=== PATIENT | female | born 1960 | race Caucasian/White ===

== ENCOUNTER 2022-03-27 21:27 | Emergency (ER) | payer OTHER ==
[2022-03-27 22:30] VITALS: BP 144/83; PULSE 72; RESP 18; TEMP 97.6
--- NOTE | 2022-03-27 22:52 | XR ---
EXAMINATION TYPE: XR wrist complete LT DATE OF EXAM: 03/27/2022 COMPARISON: NONE HISTORY: Fall. Pain. TECHNIQUE: 4 views FINDINGS: I see no fracture nor dislocation. Carpal bones are intact. Joint spaces are fairly normal. IMPRESSION: Negative left wrist exam.
--- NOTE | 2022-03-28 00:25 | ED ---
Trauma HPI - General Chief Complaint: Extremity Injury, Upper Stated Complaint: Fall/L Wrist pain/Hit head Time Seen by Provider: 03/27/22 23:56 Source: patient, RN notes reviewed Mode of arrival: ambulatory Limitations: no limitations - History of Present Illness Initial Comments: States she tripped forward over uneven ground and reach her left hand out to stop herself. Patient fell on outstretched hand. Complaining of pain to the dorsum left wrist. Patient states she did bump her head very minimally. However no loss of consciousness, has no neurologic symptoms. Complaining of sharp pain to the left wrist which is exacerbated by movement. No paresthesias no other injuries. No headache, no fever or chills, no changes in vision or hearing, no sore throat or difficulty with speech, no neck pain, no chest pain or shortness of breath, no abdominal pain, no nausea or vomiting, no changes in urination or bowel movements, no numbness or tingling, no skin rashes or lesions. - Related Data Allergies Allergy/AdvReac Type Severity Reaction Status Date / Time No Known Allergies Allergy Verified 03/27/22 22:30 Review of Systems ROS Statement: Those systems with pertinent positive or pertinent negative responses have been documented in the HPI. ROS Other: All systems not noted in ROS Statement are negative. Past Medical History Past Medical History: No Reported History History of Any Multi-Drug Resistant Organisms: None Reported Past Surgical History: Section Past Psychological History: No Psychological Hx Reported Smoking Status: Current every day smoker Past Alcohol Use History: None Reported Past Drug Use History: None Reported General Exam Limitations: no limitations General appearance: alert, in no apparent distress Head exam: Present: atraumatic, normocephalic, normal inspection Eye exam: Present: normal appearance, PERRL, EOMI. Absent: scleral icterus, con junctival injection, periorbital swelling ENT exam: Present: normal exam, mucous membranes moist Neck exam: Present: normal inspection. Absent: tenderness, meningismus, lymphadenopathy Respiratory exam: Present: normal lung sounds bilaterally. Absent: respiratory distress, wheezes, rales, rhonchi, stridor Cardiovascular Exam: Present: regular rate, normal rhythm, normal heart sounds. Absent: systolic murmur, diastolic murmur, rubs, gallop, clicks GI/Abdominal exam: Present: soft, normal bowel sounds. Absent: distended, tenderness, guarding, rebound, rigid Extremities exam: Present: normal inspection, full ROM, tenderness (Patient has tenderness over the dorsum of left wrist to include the snuffbox), normal capillary refill, calf tenderness, other (No break in skin integrity. Range of motion is essentially full with pain.) Back exam: Present: normal inspection Neurological exam: Present: alert, oriented X3, CN II-XII intact Psychiatric exam: Present: normal affect, normal mood Skin exam: Present: warm, dry, intact, normal color. Absent: rash Course Vital Signs 03/27/22 22:24 Temperature 97.6 F Pulse Rate 72 Respiratory 18 Rate Blood Pressure 144/83 O2 Sat by Pulse 98 Oximetry Procedures - Orthopedic Splinting/Casting Injury #1 Side: left Upper Extremity Injury Location: short arm (Thumb spica) Upper Extremity Immobilizer: thumb spica Lower Extremity Immobilizer: Marcus wrap, fiberglass cast Additional Comments: Distal neurovascular status intact both pre-and post-application Medical Decision Making - Medical Decision Making Patient has isolated injury to the left wrist. Patient did bump her head however there was no injury, no pain, no headache, patient neurologically intact. Alert 4. no blood thinners. patient did have left snuffbox tenderness. placed in a thumb spica splint. patient given follow-up with orthopedics. discussed the possibly of occult fracture. discussed conservative therapy otherwise Patient was told to return to the ER for any signs or symptoms worsen. Told to return immediately if any other problems arise. All questions answered. Treatment plan discussed. Patient in agreement Every effort has been made to ensure accuracy of this dictation. However, due to the limitations of electronic medical records and dictation devices, errors in charting still occur. Supervising physician Dr. Chavez Disposition Clinical Impression: Left wrist sprain Narrative: Possible scaphoid fracture as the patient has snuffbox tenderness Disposition: HOME SELF-CARE Condition: Good Instructions (If sedation given, give patient instructions): Wrist Injury (ED), How to Use a Sling (ED), Splint Care (ED), Scaphoid Fracture (ED) Additional Instructions: You have a possible scaphoid fracture. Make sure you follow-up with the orthopedic physician without fail. Review the splint as directed until follow-up with the orthopedic physician. Use a sling as directed. Use [id number] Tylenol for pain control. Return to the ER immediately if any symptoms worsen, new symptoms arise, or any other problems develop. Is patient prescribed a controlled substance at d/c from ED?: No Referrals: Edgardo Rojas DO [Doctor of Osteopathic Medicine] - 03/31/22 Time of Disposition: 00:24
== END 2022-03-28 00:41 | disposition home or self-care (01) ==
LOC: EC 21:27
DX: S63.502A Unspecified sprain of left wrist, initial encounter (principal); F17.200 Nicotine dependence, unspecified, uncomplicated; W01.0XXA Fall on same level from slipping, tripping and stumbling without subsequent striking against object, initial encounter

== ENCOUNTER 2024-08-18 20:24 | Inpatient (IN) | payer OTHER ==
--- NOTE | 2024-08-18 20:27 | ED ---
Weakness HPI - General Stated complaint: Weakness Time Seen by Provider: 08/18/24 20:26 Source: RN notes reviewed, old records reviewed Mode of arrival: EMS Limitations: no limitations - History of Present Illness Initial comments: This is a 64-year-old female to ER for evaluation of weakness today. Patient has severe weakness here in the emergency room brought by EMS patient is a poor historian secondary to clinical condition provides history that [place] and came back to find her on the ground a few feet from her fall but unable to get to her phone unknown how much time she was on the ground for about the house with significant hot and the abdomen was on, there was a pot of boiling water on the oven that was blood all dry he believes that she was on the ground for a long time Patient's further states that she is making very confused statements Complaint: generalized weakness, lack of energy, difficulty walking -: days(s) Location: generalized Severity: severe Severity scale (1-10): 8 Consistency: constant Improves with: none Worsens with: none Associated Symptoms: denies other symptoms - Related Data Home Medications Medication Instructions Recorded Confirmed Atorvastatin [Lipitor] 40 mg PO DAILY 08/19/24 08/23/24 Allergies Allergy/AdvReac Type Severity Reaction Status Date / Time No Known Allergies Allergy Verified 08/19/24 10:29 Review of Systems ROS Statement: Those systems with pertinent positive or pertinent negative responses have been documented in the HPI. ROS Other: All systems not noted in ROS Statement are negative. Past Medical History Past Medical History: No Reported History History of Any Multi-Drug Resistant Organisms: None Reported Past Surgical History: Section Past Psychological History: No Psychological Hx Reported Smoking Status: Current every day smoker Past Alcohol Use History: None Reported Past Drug Use History: None Reported General Exam General appearance: alert, in no apparent distress, anxious Head exam: Present: atraumatic, normocephalic, normal inspection Eye exam: Present: normal appearance, PERRL, EOMI. Absent: scleral icterus, conjunctival injection, periorbital swelling ENT exam: Present: normal exam, mucous membranes moist Neck exam: Present: normal inspection. Absent: tenderness, meningismus, lymphadenopathy Respiratory exam: Present: normal lung sounds bilaterally. Absent: respiratory distress, wheezes, rales, rhonchi, stridor Cardiovascular Exam: Present: regular rate, normal rhythm, normal heart sounds. Absent: systolic murmur, diastolic murmur, rubs, gallop, clicks GI/Abdominal exam: Present: soft, normal bowel sounds. Absent: distended, tenderness, guarding, rebound, rigid Extremities exam: Present: normal inspection, full ROM, normal capillary refill. Absent: tenderness, pedal edema, joint swelling, calf tenderness Back exam: Present: normal inspection Neurological exam: Present: alert, oriented X3, CN II-XII intact Psychiatric exam: Present: normal affect, normal mood Skin exam: Present: warm, dry, intact, normal color. Absent: rash Course Vital Signs 08/18/24 08/18/24 08/18/24 20:26 22:00 23:32 Temperature 97.8 F 97.5 F L Pulse Rate 82 74 Pulse Rate [ 90 Pulse Oximetery ] Respiratory 16 14 19 Rate Blood Pressure 108/84 113/68 Blood Pressure 135/84 [Left Arm] O2 Sat by Pulse 92 L 97 93 L Oximetry - Reevaluation(s) Reevaluation #1: 08/18/24 20:50 Medical records reviewed Reevaluation #2: 08/18/24 21:42 Patient symptoms unchanged Reevaluation #3: Patient informed of results and questions answered Reevaluation #4: Was pt. sent in by a medical professional or institution (, PA, ESCROW PROCESSOR, urgent ca re, hospital, or fpc...) When possible be specific @ -no Did you speak to anyone other than the patient for history (EMS, parent, family, police, friend...)? What history was obtained from this source @ -no Did you review nursing and triage notes (agree or disagree)? Why? @ -agree Are old charts reviewed (outside hosp., previous admission, EMS record, old EKG, old radiological studies, urgent care reports/EKG's, fpc records)? Report findings @ -yes Differential Diagnosis (chest pain, altered mental status, abdominal pain women, abdominal pain men, vaginal bleeding, weakness, fever, dyspnea, syncope, headache, dizziness, GI bleed, back pain, seizure, CVA, palpatations, mental health, musculoskeletal)? @ -prior EKG interpreted by me (3pts min.). @ -yes X-rays interpreted by me (1pt min.). @ -yes negative for acute disease CT interpreted by me (1pt min.). @ -no U/S interpreted by me (1pt. min.). @ -no What testing was considered but not performed or refused? (CT, X-rays, U/S, labs)? Why? @ -none What meds were considered but not given or refused? Why? @ -none Did you discuss the management of the patient with other professionals (professionals i.e. DrAliya, PA, ESCROW PROCESSOR, lab, RT, psych nurse, social media community manager, metal work duct installer, teacher, district fire management officer, case coordinator)? Give summary @ -no Was smoking cessation discussed for >3mins.? @ -no Was critical care preformed (if so, how long)? @ -no Were there social determinants of health that impacted care today? How? (Homel essness, low income, unemployed, alcoholism, drug addiction, transportation, low edu. Level, literacy, decrease access to med. care, fci, rehab)? @ -none Was there de-escalation of care discussed even if they declined (Discuss DNR or withdrawal of care, Hospice)? DNR status @ -no What co-morbidities impacted this encounter? (DM, HTN, Smoking, COPD, CAD, Cancer, CVA, ARF, Chemo, Hep., AIDS, mental health diagnosis, sleep apnea, morbid obesity)? @ -none Was patient admitted / discharged? Hospital course, mention meds given and route, prescriptions, significant lab abnormalities, going to OR and other pertinent info. @ - Undiagnosed new problem with uncertain prognosis? @ -no Drug Therapy requiring intensive monitoring for toxicity (Heparin, Nitro, Insulin, Cardizem)? @ -no Were any procedures done? @ -no Diagnosis/symptom? @ - Acute, or Chronic, or Acute on Chronic? @ -Acute Uncomplicated (without systemic symptoms) or Complicated (systemic symptoms)? @ -Complicated Side effects of treatment? @ -no Exacerbation, Progression, or Severe Exacerbation? @ -exacerbation Poses a threat to life or bodily function? How? (Chest pain, USA, MS, pneumonia, PE, COPD, DKA, ARF, appy, cholecystitis, CVA, Diverticulitis, Homicidal, Suicidal, threat to staff... and all critical care pts) @ -yes Reevaluation #5: Differential Weakness: Hypoglycemia, shock, sepsis, hyponatremia, anemia, infection, MS, ETOH, adverse medicine reaction, overdose, stroke, this is not meant to be an all-inclusive list. - Consultations Consultation #1: Spoke with orthopedics who agreed to admit this patient EKG Findings - EKG Comments: EKG Findings:: EKG is sinus 87 MA 140 QRS 95 QTc 432 - EKG Results: EKG: interpreted by [facility] Medical Decision Making - Medical Decision Making 64 female here for evaluation patient was found down for unknown downtime. Patient will admit for monitoring of troponin weakness debility altered mental status - Lab Data Result diagrams: 08/23/24 06:06 08/23/24 06:06 Lab Results 08/18/24 08/18/24 08/18/24 Range/Units 20:27 20:27 20:27 WBC 9.7 (3.8-10.6) k/uL RBC 5.31 (3.80-5.40) m/uL Hgb 15.9 (11.4-16.0) gm/dL Hct 50.5 H (34.0-46.0) % MCV 95.0 (80.0-100.0) fL MCH 29.9 (25.0-35.0) pg MCHC 31.4 (31.0-37.0) g/dL RDW 14.0 (11.5-15.5) % Plt Count 157 (150-450) k/uL MPV 7.6 Neutrophils % 87 % Lymphocytes % 5 % Monocytes % 6 % Eosinophils % 1 % Basophils % 0 % Neutrophils # 8.4 H (1.3-7.7) k/uL Lymphocytes # 0.5 L (1.0-4.8) k/uL Monocytes # 0.6 (0-1.0) k/uL Eosinophils # 0.1 (0-0.7) k/uL Basophils # 0.0 (0-0.2) k/uL Hypochromasia Slight PT 11.7 (10.0-12.5) sec INR 1.1 (<1.2) APTT 21.1 L (22.0-30.0) sec VBG pH (7.31-7.41) VBG pCO2 (37-51) mmHg VBG HCO3 (24-28) mmol/L Sodium 141 (137-145) mmol/L Potassium 4.0 (3.5-5.1) mmol/L Chloride 109 H (98-107) mmol/L Carbon Dioxide 19 L (22-30) mmol/L Anion Gap 13 mmol/L BUN 10 (7-17) mg/dL Creatinine 0.53 (0.52-1.04) mg/dL Est GFR (CKD-EPI)AfAm >90 (>60 ml/min/1.73 sqM) Est GFR (CKD-EPI)NonAf >90 (>60 ml/min/1.73 sqM) Glucose 136 H (74-99) mg/dL Lactic Ac Sepsis Rflx Plasma Lactic Acid Wan (0.7-2.0) mmol/L Calcium 9.6 (8.4-10.2) mg/dL Phosphorus 3.0 (2.5-4.5) mg/dL Magnesium 1.9 (1.6-2.3) mg/dL Total Bilirubin 1.6 H (0.2-1.3) mg/dL AST 47 H (14-36) U/L ALT 18 (4-34) U/L Alkaline Phosphatase 69 (38-126) U/L Creatine Kinase (30-135) U/L Troponin I (0.000-0.034) ng/mL Total Protein 6.3 (6.3-8.2) g/dL Albumin 3.9 (3.5-5.0) g/dL Serum Alcohol mg/dL 08/18/24 08/18/24 08/18/24 Range/Units 20:27 20:27 21:05 WBC (3.8-10.6) k/uL RBC (3.80-5.40) m/uL Hgb (11.4-16.0) gm/dL Hct (34.0-46.0) % MCV (80.0-100.0) fL MCH (25.0-35.0) pg MCHC (31.0-37.0) g/dL RDW (11.5-15.5) % Plt Count (150-450) k/uL MPV Neutrophils % % Lymphocytes % % Monocytes % % Eosinophils % % Basophils % % Neutrophils # (1.3-7.7) k/uL Lymphocytes # (1.0-4.8) k/uL Monocytes # (0-1.0) k/uL Eosinophils # (0-0.7) k/uL Basophils # (0-0.2) k/uL Hypochromasia PT (10.0-12.5) sec INR (<1.2) APTT (22.0-30.0) sec VBG pH (7.31-7.41) VBG pCO2 (37-51) mmHg VBG HCO3 (24-28) mmol/L Sodium (137-145) mmol/L Potassium (3.5-5.1) mmol/L Chloride (98-107) mmol/L Carbon Dioxide (22-30) mmol/L Anion Gap mmol/L BUN (7-17) mg/dL Creatinine (0.52-1.04) mg/dL Est GFR (CKD-EPI)AfAm (>60 ml/min/1.73 sqM) Est GFR (CKD-EPI)NonAf (>60 ml/min/1.73 sqM) Glucose (74-99) mg/dL Lactic Ac Sepsis Rflx Y Plasma Lactic Acid Wan 4.3 H* (0.7-2.0) mmol/L Calcium (8.4-10.2) mg/dL Phosphorus (2.5-4.5) mg/dL Magnesium (1.6-2.3) mg/dL Total Bilirubin (0.2-1.3) mg/dL AST (14-36) U/L ALT (4-34) U/L Alkaline Phosphatase (38-126) U/L Creatine Kinase (30-135) U/L Troponin I 0.300 H* (0.000-0.034) ng/mL Total Protein (6.3-8.2) g/dL Albumin (3.5-5.0) g/dL Serum Alcohol mg/dL 08/18/24 08/18/24 08/18/24 Range/Units 21:17 21:17 21:17 WBC (3.8-10.6) k/uL RBC (3.80-5.40) m/uL Hgb (11.4-16.0) gm/dL Hct (34.0-46.0) % MCV (80.0-100.0) fL MCH (25.0-35.0) pg MCHC (31.0-37.0) g/dL RDW (11.5-15.5) % Plt Count (150-450) k/uL MPV Neutrophils % % Lymphocytes % % Monocytes % % Eosinophils % % Basophils % % Neutrophils # (1.3-7.7) k/uL Lymphocytes # (1.0-4.8) k/uL Monocytes # (0-1.0) k/uL Eosinophils # (0-0.7) k/uL Basophils # (0-0.2) k/uL Hypochromasia PT (10.0-12.5) sec INR (<1.2) APTT (22.0-30.0) sec VBG pH 7.31 (7.31-7.41) VBG pCO2 32 L (37-51) mmHg VBG HCO3 16 L (24-28) mmol/L Sodium (137-145) mmol/L Potassium (3.5-5.1) mmol/L Chloride (98-107) mmol/L Carbon Dioxide (22-30) mmol/L Anion Gap mmol/L BUN (7-17) mg/dL Creatinine (0.52-1.04) mg/dL Est GFR (CKD-EPI)AfAm (>60 ml/min/1.73 sqM) Est GFR (CKD-EPI)NonAf (>60 ml/min/1.73 sqM) Glucose (74-99) mg/dL Lactic Ac Sepsis Rflx Plasma Lactic Acid Wan 2.4 H* (0.7-2.0) mmol/L Calcium (8.4-10.2) mg/dL Phosphorus (2.5-4.5) mg/dL Magnesium (1.6-2.3) mg/dL Total Bilirubin (0.2-1.3) mg/dL AST (14-36) U/L ALT (4-34) U/L Alkaline Phosphatase (38-126) U/L Creatine Kinase 1096 H* (30-135) U/L Troponin I (0.000-0.034) ng/mL Total Protein (6.3-8.2) g/dL Albumin (3.5-5.0) g/dL Serum Alcohol <10 mg/dL 08/18/24 Range/Units 21:44 WBC (3.8-10.6) k/uL RBC (3.80-5.40) m/uL Hgb (11.4-16.0) gm/dL Hct (34.0-46.0) % MCV (80.0-100.0) fL MCH (25.0-35.0) pg MCHC (31.0-37.0) g/dL RDW (11.5-15.5) % Plt Count (150-450) k/uL MPV Neutrophils % % Lymphocytes % % Monocytes % % Eosinophils % % Basophils % % Neutrophils # (1.3-7.7) k/uL Lymphocytes # (1.0-4.8) k/uL Monocytes # (0-1.0) k/uL Eosinophils # (0-0.7) k/uL Basophils # (0-0.2) k/uL Hypochromasia PT (10.0-12.5) sec INR (<1.2) APTT (22.0-30.0) sec VBG pH (7.31-7.41) VBG pCO2 (37-51) mmHg VBG HCO3 (24-28) mmol/L Sodium (137-145) mmol/L Potassium (3.5-5.1) mmol/L Chloride (98-107) mmol/L Carbon Dioxide (22-30) mmol/L Anion Gap mmol/L BUN (7-17) mg/dL Creatinine (0.52-1.04) mg/dL Est GFR (CKD-EPI)AfAm (>60 ml/min/1.73 sqM) Est GFR (CKD-EPI)NonAf (>60 ml/min/1.73 sqM) Glucose (74-99) mg/dL Lactic Ac Sepsis Rflx Y Plasma Lactic Acid Wan (0.7-2.0) mmol/L Calcium (8.4-10.2) mg/dL Phosphorus (2.5-4.5) mg/dL Magnesium (1.6-2.3) mg/dL Total Bilirubin (0.2-1.3) mg/dL AST (14-36) U/L ALT (4-34) U/L Alkaline Phosphatase (38-126) U/L Creatine Kinase (30-135) U/L Troponin I (0.000-0.034) ng/mL Total Protein (6.3-8.2) g/dL Albumin (3.5-5.0) g/dL Serum Alcohol mg/dL - EKG Data -: EKG Interpreted by Me - Radiology Data Radiology results: report reviewed (CT brain C-spine is negative for acute disease), image reviewed Critical Care Time Critical Care Time: Yes Total Critical Care Time: 31 Disposition Clinical Impression: Weakness, Debility, Dehydration, NSTEMI (non-ST elevated myocardial infarction), Altered mental status, Rhabdomyolysis, Lactic acidosis, Fall, Hip fracture, right, Fracture of femoral neck, right, closed Disposition: ADMITTED IP TO THIS [facility] Condition: Stable Is patient prescribed a controlled substance at d/c from ED?: No Time of Disposition: 22:00
[2024-08-18] MEDS: SODIUM CHLORIDE 0.9% 1,000 ML IV STA (20:44)
[2024-08-18 20:48] LABS: Basophils % (A) 0 %; Eosinophils # (A) 0.1 k/uL (0-0.7); Eosinophils % (A) 1 %; HCT 50.5 % (34.0-46.0); HGB 15.9 gm/dL (11.4-16.0); Hypochromasia Slight; Lymphocytes # (A) 0.5 k/uL (1.0-4.8); Lymphocytes % (A) 5 %; MCH 29.9 pg (25.0-35.0); MCHC 31.4 g/dL (31.0-37.0); Mean Platelet Volume 7.6; Monocytes # (A) 0.6 k/uL (0-1.0); Monocytes % (A) 6 %; Neutrophils # (A) 8.4 k/uL (1.3-7.7); Neutrophils % (A) 87 %; Platelet Count 157 k/uL (150-450); RBC 5.31 m/uL (3.80-5.40); WBC 9.7 k/uL (3.8-10.6)
[2024-08-18 21:12] LABS: INR 1.1 (<1.2); Partial Thromboplastin Time 21.1 sec (22.0-30.0); Prothrombin Time 11.7 sec (10.0-12.5)
[2024-08-18 21:30] LABS: ALT 18 U/L (4-34); African American GFR (CKD) >90 (>60 ml/min/1.73 sqM); Albumin 3.9 g/dL (3.5-5.0); Anion Gap 13 mmol/L; Blood Urea Nitrogen 10 mg/dL (7-17); Calcium 9.6 mg/dL (8.4-10.2); Carbon Dioxide 19 mmol/L (22-30); Chloride 109 mmol/L (98-107); Glucose 136 mg/dL (74-99); Non-African American GFR(CKD) >90 (>60 ml/min/1.73 sqM); Sodium 141 mmol/L (137-145); Total Bilirubin 1.6 mg/dL (0.2-1.3); Total Protein 6.3 g/dL (6.3-8.2)
[2024-08-18 21:33] LABS: VBG PH 7.31 (7.31-7.41)
[2024-08-18 21:37] LABS: AST 47 U/L (14-36); Alkaline Phosphatase 69 U/L (38-126); Magnesium 1.9 mg/dL (1.6-2.3)
[2024-08-18 21:46] LABS: Alcohol <10 mg/dL
[2024-08-18 21:48] LABS: Creatine Kinase 1096 U/L (30-135)
--- NOTE | 2024-08-18 21:49 | CT ---
EXAMINATION TYPE: CT brain destiney sánchez DATE OF EXAM: 08/18/2024 COMPARISON: None HISTORY: weakness, ams, fall CT DLP: 1247.2 mGycm, Automated exposure control for dose reduction was used. CONTRAST: Patient injected with mL of . CT of the brain is performed utilizing 3 mm thick sections through the posterior fossa and 3 mm thick sections through the remaining calvarium. Study is performed within 24 hours of arrival to the hospital. No abnormal hyperdensity is present to suggest an acute intracranial hemorrhage. No mass lesion is evident. No acute infarcts are evident. Periventricular white matter hypodensity is present, likely on the ba sis of chronic white matter ischemic changes. Ventricles and sulci are prominent for the patient age. Minimal mucosal thickening is within the posterior left ethmoid air cell. Remaining paranasal sinuses and mastoid air cells are clear. IMPRESSIONS: 1. No acute intracranial process. Follow-up MRI can be performed as clinically indicated. 2. Chronic appearing patchy periventricular white matter ischemic-type changes. CT cervical spine. COMPARISON: None CT of the cervical spine is performed in the axial plane at 2 mm thick sections. Reconstructed image s in the coronal, and sagittal plane are reviewed on the computer. No acute fractures are evident. Vertebral body alignment is normal. Disc heights are preserved. Vertebral body heights are preserved. No spinal canal stenosis is evident. Uncovertebral joint hypertrophy is present with moderate bilateral foraminal narrowing at C5-6 IMPRESSION: 1. No acute osseous abnormality cervical spine. 2. Foraminal narrowing C5-6 bilaterally. [facility], Workstation: [facility], 08/18/2024 9:46 PM
[2024-08-18] MEDS ORDERED: NALOXONE 0.4 MG/ML 1 ML VIAL IV PRN (21:51)
[2024-08-18] MEDS ORDERED: ONDANSETRON 4 MG/2 ML VIAL IVP PRN (21:51)
--- NOTE | 2024-08-18 21:51 | XR ---
EXAMINATION TYPE: XR chest 1V DATE OF EXAM: 08/18/2024 COMPARISON: None INDICATION: Fall weakness TECHNIQUE: Single frontal view of the chest is obtained. FINDINGS: The heart size is normal. The pulmonary vasculature is normal. No suspicious focal consolidation is evident. IMPRESSION: 1. No acute pulmonary process. [facility], Workstation: [facility], 08/18/2024 9:49 PM
--- NOTE | 2024-08-18 21:51 | CT ---
EXAMINATION TYPE: CT soft tissue neck wo con DATE OF EXAM: 08/18/2024 COMPARISON: None HISTORY: weakness, ams CT DLP: 217.5 mGycm CONTRAST: Patient injected with 0 mL of Isovue 300. TECHNIQUE: Axial images at 3 mm thick sections. Reconstructed images in the coronal plane and sagitt al plane are reviewed. FINDINGS: Limited CT sections are obtained the lung apices. The lung apices appear clear. CT neck: The torus tubarius and fossa of Rosenmuller are normal. Long Distance Billing Operator spaces are normal. Para nasal sinuses and mastoid air cells are clear. Parotid glands appear normal and symmetrical. Submandibular glands, are normal. Parapharyngeal spac es are normal. No suspicious adenopathy is evident. The hypopharynx appears within normal limits. Vocal cord level appear symmetrical. Subglottic airway is unremarkable. Thyroid as visualized is normal. Osseous structures are normal. Extensive emphysematous changes are within visualized upper lung troy. IMPRESSION: 1. No suspicious acute soft tissue neck abnormality. 2. Advanced emphysematous changes within the visualized lung apices. [facility], Workstation: [facility], 08/18/2024 9:48 PM
--- NOTE | 2024-08-18 21:53 | XR ---
EXAMINATION TYPE: XR Hip Bilateral and AP pelvis DATE OF EXAM: 08/18/2024 COMPARISON: None HISTORY: Fall, pain TECHNIQUE: AP pelvis supplemented with 2 views bilateral hips FINDINGS: Femoral heads articulate with the acetabulum. There appears to be a fracture of the right femoral neck. Correlate with location of patient's pain. Left hip appears intact. Symphysis pubis and sacroiliac joints are normal. No additional areas suspic ious for fracture evident. IMPRESSION: 1. Findings suggestive for right femoral neck fracture. Correlate with location of patient's pain [facility], Workstation: [facility], 08/18/2024 9:50 PM
[2024-08-18] MEDS: SODIUM CHLORIDE 0.9% 1,000 ML IV SCH (21:59)
--- NOTE | 2024-08-19 06:31 | P.CONS ---
History of Present Illness - Reason for Consult Consult date: 08/19/24 - History of Present Illness Patient is a 64-year-old female with no known PMH who was brought into the emergency room after she was found on the floor by her . Patient reports that she was in her usual state of health until Tuesday evening when she lost her footing and fell to the ground while she was cooking food in her kitchen. The patient's tried to contact her on Tuesday evening as he was out on a hu nting trip and was unable to get a hold of her. He subsequently contacted her again on Tuesday afternoon and when she did not answer, he decided to come back home and found her on the ground. The patient does recall hitting her head when she fell but notes that she has severe pain in the right hip and was unable to stand up. She denied experiencing chest discomfort, shortness breath, fever, ch ills, cough, nausea, vomiting, abdominal pain, diarrhea. Head/cervical spine CT in the emergency room was unremarkable with neck CT also unremarkable. Pelvis x-ray did reveal a right sided femoral neck fracture with chest x-ray also unremarkable. EKG revealed sinus rhythm at 87 bpm with left axis deviation with poor baseline as reviewed by me. Laboratory evaluation was remarkable for lactic acid 4.3, troponin 0.3, creatinine kinase 1096, serum alcohol less than 10, total bilirubin 1.6, AST 47, hemoglobin 15.9. ED documentation reviewed and case discussed with ED provider. Review of systems: Pertinent positives and negatives as discussed in HPI, a complete review of systems was performed and all other systems are negative. Physical examination: Vital signs reviewed General: non toxic, no distress, appears at stated age, cachectic Derm: no unusual rashes/lesions, warm Head: atraumatic, normocephalic, symmetric Eyes: EOMI, no lid lag, anicteric sclera, pupils equal round reactive to light ENT: Nose and ears atraumatic Neck: No cervical lymphadenopathy, trachea midline, supple Mouth: no lip lesion, mucus membranes moist Cardiovascular: S1S2 reg, no murmur, positive dorsalis pedis pulse bilateral, no edema Lungs: CTA bilateral, no rhonchi, no rales, no accessory muscle use Abdominal: soft, nontender to palpation, no guarding Ext: muscle strength 4 out of 5 in all 4 extremities grossly except proximal right lower extremity strength limited due to pain, no gross muscle atrophy, no contractures, Neuro: CN II-XI grossly intact, no gross focal neuro deficits Psych: Alert, oriented, appropriate affect Assessment: Rhabdomyolysis Elevated troponin, likely type II VA in setting of rhabdomyolysis and dehydration Lactic acidosis Right femoral neck fracture Imaging: Head/cervical spine CT in the emergency room was unremarkable with neck CT also unremarkable. Pelvis x-ray did reveal a right sided femoral neck fracture with chest x-ray also unremarkable. EKG revealed sinus rhythm at 87 bpm with left axis deviation with poor baseline as reviewed by me. Data Review: Laboratory evaluation was remarkable for lactic acid 4.3, troponin 0.3, creatinine kinase 1096, serum alcohol less than 10, total bilirubin 1.6, AST 47, hemoglobin 15.9. Plan: Continue with IV fluids normal saline 130 mL/h Trend troponin Monitor lactic acid levels closely Defer management of pain control and DVT prophylaxis to the primary surgery service Past Medical History Past Medical History: No Reported History History of Any Multi-Drug Resistant Organisms: None Reported Past Surgical History: Section Past Anesthesia/Blood Transfusion Reactions: No Reported Reaction Past Psychological History: No Psychological Hx Reported Smoking Status: Current every day smoker Past Alcohol Use History: None Reported Past Drug Use History: None Reported Medications and Allergies Allergies Allergy/AdvReac Type Severity Reaction Status Date / Time No Known Allergies Allergy Verified 03/27/22 22:30 Physical Exam Vitals: Vital Signs Temp Pulse Pulse Resp BP BP Pulse Ox 08/19/24 03:24 82 19 126/82 98 08/18/24 23:32 97.5 F L 90 19 135/84 93 L 08/18/24 22:00 74 14 113/68 97 08/18/24 20:26 97.8 F 82 16 108/84 92 L Intake and Output 08/18/24 08/18/24 08/19/24 14:59 22:59 06:59 Other: Voiding Method External Catheter Weight 53.524 kg 30.5 kg Results CBC & Chem 7: 08/18/24 20:27 08/18/24 20:27 Labs: Abnormal Lab Results - Last 24 Hours (Table) 08/18/24 08/18/24 08/18/24 Range/Units 20:27 20:27 20:27 Hct 50.5 H (34.0-46.0) % Neutrophils # 8.4 H (1.3-7.7) k/uL Lymphocytes # 0.5 L (1.0-4.8) k/uL APTT 21.1 L (22.0-30.0) sec VBG pCO2 (37-51) mmHg VBG HCO3 (24-28) mmol/L Chloride 109 H (98-107) mmol/L Carbon Dioxide 19 L (22-30) mmol/L Glucose 136 H (74-99) mg/dL Plasma Lactic Acid Wan (0.7-2.0) mmol/L Total Bilirubin 1.6 H (0.2-1.3) mg/dL AST 47 H (14-36) U/L Creatine Kinase (30-135) U/L Troponin I (0.000-0.034) ng/mL 08/18/24 08/18/24 08/18/24 Range/Units 20:27 20:27 21:17 Hct (34.0-46.0) % Neutrophils # (1.3-7.7) k/uL Lymphocytes # (1.0-4.8) k/uL APTT (22.0-30.0) sec VBG pCO2 (37-51) mmHg VBG HCO3 (24-28) mmol/L Chloride (98-107) mmol/L Carbon Dioxide (22-30) mmol/L Glucose (74-99) mg/dL Plasma Lactic Acid Wan 4.3 H* (0.7-2.0) mmol/L Total Bilirubin (0.2-1.3) mg/dL AST (14-36) U/L Creatine Kinase 1096 H* (30-135) U/L Troponin I 0.300 H* (0.000-0.034) ng/mL 08/18/24 08/18/24 Range/Units 21:17 21:17 Hct (34.0-46.0) % Neutrophils # (1.3-7.7) k/uL Lymphocytes # (1.0-4.8) k/uL APTT (22.0-30.0) sec VBG pCO2 32 L (37-51) mmHg VBG HCO3 16 L (24-28) mmol/L Chloride (98-107) mmol/L Carbon Dioxide (22-30) mmol/L Glucose (74-99) mg/dL Plasma Lactic Acid Wan 2.4 H* (0.7-2.0) mmol/L Total Bilirubin (0.2-1.3) mg/dL AST (14-36) U/L Creatine Kinase (30-135) U/L Troponin I (0.000-0.034) ng/mL
[2024-08-19 07:01] LABS: Basophils % (A) 0 %; Eosinophils % (A) 0 %; HCT 43.8 % (34.0-46.0); HGB 14.2 gm/dL (11.4-16.0); Lymphocytes # (A) 0.7 k/uL (1.0-4.8); Lymphocytes % (A) 7 %; MCH 30.8 pg (25.0-35.0); MCHC 32.4 g/dL (31.0-37.0); MCV 94.9 fL (80.0-100.0); Mean Platelet Volume 8.5; Monocytes # (A) 0.7 k/uL (0-1.0); Monocytes % (A) 7 %; Neutrophils # (A) 8.4 k/uL (1.3-7.7); Neutrophils % (A) 84 %; Platelet Count 163 k/uL (150-450); RBC 4.61 m/uL (3.80-5.40); RDW 14.5 % (11.5-15.5)
[2024-08-19 07:12] LABS: ALT 17 U/L (4-34); AST 50 U/L (14-36); African American GFR (CKD) >90 (>60 ml/min/1.73 sqM); Albumin 3.5 g/dL (3.5-5.0); Alkaline Phosphatase 65 U/L (38-126); Anion Gap 11 mmol/L; Blood Urea Nitrogen 8 mg/dL (7-17); Calcium 8.8 mg/dL (8.4-10.2); Carbon Dioxide 21 mmol/L (22-30); Chloride 110 mmol/L (98-107); Glucose 81 mg/dL (74-99); Magnesium 1.8 mg/dL (1.6-2.3); Non-African American GFR(CKD) >90 (>60 ml/min/1.73 sqM); Phosphorus 3.2 mg/dL (2.5-4.5); Potassium 3.3 mmol/L (3.5-5.1); Sodium 142 mmol/L (137-145); Total Bilirubin 1.3 mg/dL (0.2-1.3); Total Protein 5.7 g/dL (6.3-8.2)
[2024-08-19 07:17] LABS: Creatine Kinase 1375 U/L (30-135)
[2024-08-19 11:53] LABS: Basophils % (A) 0 %; Eosinophils # (A) 0.1 k/uL (0-0.7); Eosinophils % (A) 1 %; HCT 43.8 % (34.0-46.0); INR 0.9 (<1.2); Lymphocytes # (A) 0.7 k/uL (1.0-4.8); Lymphocytes % (A) 8 %; MCH 30.4 pg (25.0-35.0); Mean Platelet Volume 8.4; Monocytes # (A) 0.7 k/uL (0-1.0); Monocytes % (A) 7 %; Neutrophils % (A) 83 %; Platelet Count 159 k/uL (150-450); Prothrombin Time 10.4 sec (10.0-12.5); RBC 4.61 m/uL (3.80-5.40); RDW 14.5 % (11.5-15.5); WBC 9.5 k/uL (3.8-10.6)
[2024-08-19 11:59] LABS: Partial Thromboplastin Time 22.1 sec (22.0-30.0)
[2024-08-19] MEDS ORDERED: TRANEXAMIC 1,000 MG/100ML-NACL 1,000 MG in SALINE 1 100ML.BAG IVPB ONE (12:02)
[2024-08-19] MEDS: HEPARIN SODIUM 1,000 UN/ML (10ML VL) IV ONE (12:22)
[2024-08-19] MEDS: HEPARIN SOD,PORK IN 0.45% NACL 25,000 UNIT in 0.45% NACL 1 250ML.BAG IV SCH (12:23)
--- NOTE | 2024-08-19 13:36 | P.CRDCN ---
History of Present Illness Consult date: 08/19/24 Consult reason: other (elavated troponins) History of present illness: History of present illness: Patient is a pleasant 64-year-old female with no significant past medical history who presented to the emergency department after she was found on the floor by her . 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 She reports that she was cooking 2 days ago when she suddenly just collapsed to the ground injuring her leg and was unable to get up for the next 24 hours until her found her. She denies having any loss of consciousness however is uncertain how she actually fell. She does report a significant family history of father, sister, brother all having CAD. She does smoke, denies any alcohol use. Labs reviewed: Troponin 0.215, 0.300, CK 1096, 1375. Patient appears pale with a weak raspy voice. She denies any chest pain or pressure. She does report hip pain with movement. She was found to have a right femoral neck fracture and orthopedics is planning for surgery. REVIEW OF SYSTEMS: No fever or chills. No cough or expectoration. No diaphoresis. Patient denies headache, dizziness, blurred vision, double vision. Patient denies any stomach discomfort. No nausea, vomiting. No hematochezia. No hematemesis. Denies any black stools or blood in his stools. Denies dysuria or h ematuria. No muscle weakness or numbness. No chest pain or pressure. PHYSICAL EXAMINATION: This is a 64-year-old female in no apparent distress at the time of my examination. HEENT: Head is atraumatic, normocephalic. Pupils are equal, round. Sclerae anicteric. Conjunctivae are clear. Mucous membranes of the mouth are moist. Neck is supple. There is no jugular venous distention. No carotid bruit is heard. CHEST EXAMINATION: Lungs are clear to auscultation. No chest wall tenderness is noted on palpation or with deep breathing. HEART EXAMINATION: Heart regular rate and rhythm. S1, S2 heard. No murmurs, gallops or rub. ABDOMEN: Soft, nontender. Bowel sounds are heard. EXTREMITIES: 2+ peripheral pulses with no evidence of peripheral edema and no calf tenderness noted. NEUROLOGIC EXAMINATION: Patient is awake, alert and oriented x3. IMPRESSION AND PLAN: NSTEMI Rhabdomyolysis Right femoral neck fracture Tobacco abuse Family history of CAD Pre-operative exam PLAN: Patient does have significant risk factors therefore recommend checking echocardiogram to evaluate heart function and structure. Check D-dimer and if abnormal check CT chest to rule out PE. Consider stress testing versus left heart catheterization. Start aspirin and Toprol 12.5 mg twice daily. Start heparin drip. Patient is not cleared for surgery at this time. Further recommendations pending clinical course. I am dictating on behalf of Dr. Bryson Ron's history/physical and assessment/plan. Past Medical History Past Medical History: No Reported History History of Any Multi-Drug Resistant Organisms: None Reported Past Surgical History: Section Past Anesthesia/Blood Transfusion Reactions: No Reported Reaction Past Psychological History: No Psychological Hx Reported Smoking Status: Current every day smoker Past Alcohol Use History: None Reported Past Drug Use History: None Reported Medications and Allergies Home Medications Medication Instructions Recorded Confirmed Type Atorvastatin [Lipitor] 40 mg PO DAILY 08/19/24 08/19/24 History Allergies Allergy/AdvReac Type Severity Reaction Status Date / Time No Known Allergies Allergy Verified 08/19/24 10:29 Physical Exam Vitals: Vital Signs Temp Pulse Pulse Resp BP BP Pulse Ox 08/19/24 09:26 98.3 F 80 16 126/75 100 08/19/24 03:24 82 19 126/82 98 08/18/24 23:32 97.5 F L 90 19 135/84 93 L 08/18/24 22:00 74 14 113/68 97 08/18/24 20:26 97.8 F 82 16 108/84 92 L Intake and Output 08/18/24 08/19/24 08/19/24 22:59 06:59 14:59 Other: Voiding Method External Catheter External Catheter Weight 53.524 kg 30.5 kg Results 08/19/24 11:17 08/19/24 06:52 Cardiac Enzymes 08/18/24 08/18/24 08/19/24 Range/Units 20:27 20:27 06:11 AST 47 H (14-36) U/L Troponin I 0.300 H* 0.215 H* (0.000-0.034) ng/mL 08/19/24 Range/Units 06:52 AST 50 H (14-36) U/L Troponin I (0.000-0.034) ng/mL Coagulation 08/18/24 Range/Units 20:27 PT 11.7 (10.0-12.5) sec APTT 21.1 L (22.0-30.0) sec CBC 08/18/24 08/19/24 Range/Units 20:27 06:11 WBC 9.7 10.0 (3.8-10.6) k/uL RBC 5.31 4.61 (3.80-5.40) m/uL Hgb 15.9 14.2 (11.4-16.0) gm/dL Hct 50.5 H 43.8 (34.0-46.0) % Plt Count 157 163 (150-450) k/uL Comprehensive Metabolic Panel 08/18/24 08/19/24 Range/Units 20:27 06:52 Sodium 141 142 (137-145) mmol/L Potassium 4.0 3.3 L (3.5-5.1) mmol/L Chloride 109 H 110 H (98-107) mmol/L Carbon Dioxide 19 L 21 L (22-30) mmol/L BUN 10 8 (7-17) mg/dL Creatinine 0.53 0.46 L (0.52-1.04) mg/dL Glucose 136 H 81 (74-99) mg/dL Calcium 9.6 8.8 (8.4-10.2) mg/dL AST 47 H 50 H (14-36) U/L ALT 18 17 (4-34) U/L Alkaline Phosphatase 69 65 (38-126) U/L Total Protein 6.3 5.7 L (6.3-8.2) g/dL Albumin 3.9 3.5 (3.5-5.0) g/dL Current Medications Generic Name Dose Route Start Last Admin Trade Name Freq PRN Reason Stop Dose Admin Sodium Chloride 1,000 mls @ 130 mls/hr 08/18/24 22:00 08/19/24 05:54 Saline 0.9% IV 130 mls/hr .[id number] CHANDANA Administration Morphine Sulfate 4 mg 08/18/24 21:51 Morphine Sulfate 4 Mg/Ml Syringe IV Q4HR PRN Severe Pain (Scale 7 to 10) Naloxone HCl 0.2 mg 08/18/24 21:51 Naloxone 0.4 Mg/Ml 1 Ml Vial IV Q2M PRN Opioid Reversal Ondansetron HCl 4 mg 08/18/24 21:51 Ondansetron 4 Mg/2 Ml Vial IVP Q8HR PRN Nausea And Vomiting Intake and Output 08/18/24 08/19/24 08/19/24 22:59 06:59 14:59 Other: Voiding Method External Catheter External Catheter Weight 53.524 kg 30.5 kg 08/19/24 06:11 08/19/24 06:52
--- NOTE | 2024-08-19 14:19 | P.CNOR ---
History of Present Illness - HPI Consult date: 08/19/24 History of present illness: This is a 64-year-old female who is admitted for multiple medical problems and a right hip fracture. Patient states that she fell on Tuesday at home and was unable to get back up on her own. Patient states that she was unable to reach anyone for help and was found down on Tuesday by her . Patient states that she did hit her head. Patient is uncertain how she fell. Patient is being followed by cardiology for NSTEMI. Patient denies any significant past medical history. Patient denies any fever/chills, chest pain, shortness breath, abdominal pain, numbness, weakness or tingling. Review of Systems See HPI. Past Medical History Past Medical History: No Reported History History of Any Multi-Drug Resistant Organisms: None Reported Past Surgical History: Section Past Anesthesia/Blood Transfusion Reactions: No Reported Reaction Past Psychological History: No Psychological Hx Reported Smoking Status: Current every day smoker Past Alcohol Use History: None Reported Past Drug Use History: None Reported Medications and Allergies Home Medications Medication Instructions Recorded Confirmed Type Atorvastatin [Lipitor] 40 mg PO DAILY 08/19/24 08/19/24 History Allergies Allergy/AdvReac Type Severity Reaction Status Date / Time No Known Allergies Allergy Verified 08/19/24 10:29 Physical Examination On exam patient is resting comfortably in bed in no acute distress. Patient is alert and oriented 3. Right lower extremity: Shortened and externally rotated. Skin is intact. There is mild swelling present. The right lower extremity is warm and well-perfused. Sensation is intact. Patient has good range of motion of the right foot and ankle. Calf is soft and nontender to palpation. Neurovascular status and circulatory status are intact. Results X-rays of the right hip and pelvis dated 08/18/2024 show a right femoral neck fracture. - Labs Labs: Abnormal Lab Results - Last 24 Hours (Table) 08/18/24 08/18/24 08/18/24 Range/Units 20:27 20:27 20:27 Hct 50.5 H (34.0-46.0) % Neutrophils # 8.4 H (1.3-7.7) k/uL Lymphocytes # 0.5 L (1.0-4.8) k/uL APTT 21.1 L (22.0-30.0) sec D-Dimer (<0.60) mg/L FEU VBG pCO2 (37-51) mmHg VBG HCO3 (24-28) mmol/L Potassium (3.5-5.1) mmol/L Chloride 109 H (98-107) mmol/L Carbon Dioxide 19 L (22-30) mmol/L Creatinine (0.52-1.04) mg/dL Glucose 136 H (74-99) mg/dL Plasma Lactic Acid Wan (0.7-2.0) mmol/L Total Bilirubin 1.6 H (0.2-1.3) mg/dL AST 47 H (14-36) U/L Creatine Kinase (30-135) U/L Troponin I (0.000-0.034) ng/mL Total Protein (6.3-8.2) g/dL 08/18/24 08/18/24 08/18/24 Range/Units 20:27 20:27 21:17 Hct (34.0-46.0) % Neutrophils # (1.3-7.7) k/uL Lymphocytes # (1.0-4.8) k/uL APTT (22.0-30.0) sec D-Dimer (<0.60) mg/L FEU VBG pCO2 (37-51) mmHg VBG HCO3 (24-28) mmol/L Potassium (3.5-5.1) mmol/L Chloride (98-107) mmol/L Carbon Dioxide (22-30) mmol/L Creatinine (0.52-1.04) mg/dL Glucose (74-99) mg/dL Plasma Lactic Acid Wan 4.3 H* (0.7-2.0) mmol/L Total Bilirubin (0.2-1.3) mg/dL AST (14-36) U/L Creatine Kinase 1096 H* (30-135) U/L Troponin I 0.300 H* (0.000-0.034) ng/mL Total Protein (6.3-8.2) g/dL 08/18/24 08/18/24 08/19/24 Range/Units 21:17 21:17 06:11 Hct (34.0-46.0) % Neutrophils # 8.4 H (1.3-7.7) k/uL Lymphocytes # 0.7 L (1.0-4.8) k/uL APTT (22.0-30.0) sec D-Dimer (<0.60) mg/L FEU VBG pCO2 32 L (37-51) mmHg VBG HCO3 16 L (24-28) mmol/L Potassium (3.5-5.1) mmol/L Chloride (98-107) mmol/L Carbon Dioxide (22-30) mmol/L Creatinine (0.52-1.04) mg/dL Glucose (74-99) mg/dL Plasma Lactic Acid Wan 2.4 H* (0.7-2.0) mmol/L Total Bilirubin (0.2-1.3) mg/dL AST (14-36) U/L Creatine Kinase (30-135) U/L Troponin I (0.000-0.034) ng/mL Total Protein (6.3-8.2) g/dL 08/19/24 08/19/24 08/19/24 Range/Units 06:11 06:52 11:17 Hct (34.0-46.0) % Neutrophils # (1.3-7.7) k/uL Lymphocytes # (1.0-4.8) k/uL APTT (22.0-30.0) sec D-Dimer 1.17 H (<0.60) mg/L FEU VBG pCO2 (37-51) mmHg VBG HCO3 (24-28) mmol/L Potassium 3.3 L (3.5-5.1) mmol/L Chloride 110 H (98-107) mmol/L Carbon Dioxide 21 L (22-30) mmol/L Creatinine 0.46 L (0.52-1.04) mg/dL Glucose (74-99) mg/dL Plasma Lactic Acid Wan (0.7-2.0) mmol/L Total Bilirubin (0.2-1.3) mg/dL AST 50 H (14-36) U/L Creatine Kinase 1375 H* (30-135) U/L Troponin I 0.215 H* (0.000-0.034) ng/mL Total Protein 5.7 L (6.3-8.2) g/dL 08/19/24 Range/Units 11:17 Hct (34.0-46.0) % Neutrophils # 8.0 H (1.3-7.7) k/uL Lymphocytes # 0.7 L (1.0-4.8) k/uL APTT (22.0-30.0) sec D-Dimer (<0.60) mg/L FEU VBG pCO2 (37-51) mmHg VBG HCO3 (24-28) mmol/L Potassium (3.5-5.1) mmol/L Chloride (98-107) mmol/L Carbon Dioxide (22-30) mmol/L Creatinine (0.52-1.04) mg/dL Glucose (74-99) mg/dL Plasma Lactic Acid Wan (0.7-2.0) mmol/L Total Bilirubin (0.2-1.3) mg/dL AST (14-36) U/L Creatine Kinase (30-135) U/L Troponin I (0.000-0.034) ng/mL Total Protein (6.3-8.2) g/dL H & H 08/18/24 08/19/24 08/19/24 Range/Units 20:27 06:11 11:17 Hgb 15.9 14.2 14.0 (11.4-16.0) gm/dL Hct 50.5 H 43.8 43.8 (34.0-46.0) % Coagulation 08/18/24 08/19/24 Range/Units 20:27 11:17 INR 1.1 0.9 (<1.2) Result Diagrams: 08/19/24 11:17 08/19/24 06:52 Assessment and Plan (1) Fracture of femoral neck, right, closed Current Visit: Yes Status: Acute Code(s): S72.001A - FRACTURE OF UNSP PART OF NECK OF RIGHT FEMUR, INIT SNOMED Code(s): 531507808 (2) NSTEMI (non-ST elevated myocardial infarction) Current Visit: Yes Status: Acute Code(s): I21.4 - NON-ST ELEVATION (NSTEMI) MYOCARDIAL INFARCTION SNOMED Code(s): 18607943 (3) Rhabdomyolysis Current Visit: Yes Status: Acute Code(s): M62.82 - RHABDOMYOLYSIS SNOMED Code(s): 930409637 Plan: 1. Patient is to be NPO after midnight. 2. Continue bedrest and pain control. 3. Appreciate input from internal medicine and cardiology. 4. Patient is scheduled to undergo further cardiac testing. 5. We are planning for right hip hemiarthroplasty on 08/20/2024 pending medical clearance and patient consent.
--- NOTE | 2024-08-19 14:26 | CT ---
EXAMINATION TYPE: CT chest angio for PE CT DLP: 275.7 mGycm, Automated exposure control for dose reduction was used. DATE OF EXAM: 08/19/2024 2:05 PM COMPARISON: Chest radiograph from same day. CLINICAL INDICATION: Female, 64 years old with history of +d-dimer, r/o PE; PE TECHNIQUE/CONTRAST: CTA scan of the thorax is performed with IV Contrast, patient injected with 60 mL of Isovue 370, MIP images are created and reviewed these are created on a separate workstation.. FINDINGS: Pulmonary Artery: There is no evidence for a filling defect within the pulmonary vasculature to sugge st acute pulmonary embolism. The pulmonary artery is of normal size. Lungs/Pleura: Centrilobular emphysema changes. Scattered splenic granulomas left lower lobe. No evide nce of focal consolidation, pleural effusion or pneumothorax. Airway: Large airways are patent. Heart: Heart is within normal limits for size. Vasculature: No evidence of aortic aneurysm. Mediastinum: No gross evidence of adenopathy. Layering secretions within the esophagus. Musculoskeletal: No acute osseous abnormalities Soft Tissues/lymph nodes: Unremarkable. Lower neck: No significant findings. Upper Abdomen: High density peripheral probable gallstones layering the gallbladder lumen. Simple devaughn earing probable hepatic cysts. Within the spleen. IMPRESSION: 1. No evidence of pulmonary embolism. 2. Marked severe emphysema changes. 3. Cholelithiasis. [facility], , 08/19/2024 2:24 PM
[2024-08-19] MEDS: ASPIRIN 81 MG PO SCH (16:21)
[2024-08-19] MEDS: HEPARIN SODIUM 1,000 UN/ML (10ML VL) IV PRN (19:51)
[2024-08-19 20:10] LABS: Glucose,Whole Blood 115 mg/dL (70-110)
[2024-08-19] MEDS ORDERED: IPRATROPIUM-ALBUTEROL 3 ML NEB INHALATION PRN (20:28)
--- NOTE | 2024-08-19 20:31 | XR ---
EXAMINATION TYPE: XR chest 1V portable DATE OF EXAM: 08/19/2024 COMPARISON: 08/18/2024 INDICATION: Hypoxia TECHNIQUE: Single frontal view of the chest is obtained. FINDINGS: The heart size is normal. The pulmonary vasculature is normal. Mild bibasilar infiltrates are present. Correlate for atelectasis or pneumonia. Consider atypical pne umonia. IMPRESSION: 1. Mild bibasilar infiltrates increased from comparison. Correlate for atelectasis or pneumonia. Foll ow-up recommended. [facility], Workstation: [facility], 08/19/2024 8:28 PM
[2024-08-19] MEDS: methylPREDNISolone SOD SUCCI 125 MG/2 ML VIAL IV STA (20:33)
[2024-08-19] MEDS: IPRATROPIUM-ALBUTEROL 3 ML NEB INHALATION STA (20:34)
[2024-08-19 20:48] LABS: ABG Base Excess -7.5 mmol/L; ABG HCO3 20 mmol/L (21-25); ABG Oxygen Saturation 90.9 % (94-97); ABG PCO2 46 mmHg (35-45); ABG PH 7.24 (7.35-7.45); ABG PO2 66 mmHg (83-108); ABG TCO2 21 mmol/L (19-24); Allen Test Performed? Yes
[2024-08-19 23:21] LABS: Basophils % (A) 0 %; Eosinophils % (A) 0 %; HCT 44.4 % (34.0-46.0); HGB 13.9 gm/dL (11.4-16.0); Hypochromasia Marked; Lymphocytes # (A) 0.5 k/uL (1.0-4.8); Lymphocytes % (A) 7 %; MCH 30.6 pg (25.0-35.0); MCHC 31.4 g/dL (31.0-37.0); MCV 97.2 fL (80.0-100.0); Monocytes # (A) 0.5 k/uL (0-1.0); Monocytes % (A) 8 %; Neutrophils # (A) 5.5 k/uL (1.3-7.7); Neutrophils % (A) 83 %; Platelet Count 150 k/uL (150-450); RBC 4.56 m/uL (3.80-5.40); RDW 14.3 % (11.5-15.5); WBC 6.6 k/uL (3.8-10.6)
[2024-08-19 23:52] LABS: African American GFR (CKD) >90 (>60 ml/min/1.73 sqM); Anion Gap 10 mmol/L; Blood Urea Nitrogen 7 mg/dL (7-17); Calcium 8.7 mg/dL (8.4-10.2); Carbon Dioxide 17 mmol/L (22-30); Chloride 115 mmol/L (98-107); Glucose 113 mg/dL (74-99); Non-African American GFR(CKD) >90 (>60 ml/min/1.73 sqM); Potassium 3.2 mmol/L (3.5-5.1); Sodium 142 mmol/L (137-145)
[2024-08-19] MEDS: METOPROLOL SUCCINATE (ER) 25 MG TAB.ER.24H PO SCH (23:56)
--- NOTE | 2024-08-20 01:12 | P.EN ---
A- team: Indication: Hypoxia Arrived on Scene to find: On a nonrebreather mask Vital signs reviewed: SpO2 81%, BP 119/74, pulse 92 Patient seen and examined at bedside. General: Thin ill-appearing female, [no distress], [appears older than stated age] Derm: [warm], [dry] Head: [atraumatic], [normocephalic], [symmetric] Eyes: [EOMI], [no lid lag], [anicteric sclera] Mouth: [no lip lesion], [mucus membranes moist] Cardiovascular: [S1S2 reg], [no murmur], [positive posterior tibial pulse bilateral], Lungs: Bilateral wheezing with somewhat poor air entry without rhonchi or rales, [no accessory muscle use] Abdominal: [soft], [ nontender to palpation], [no guarding], [no appreciable organomegaly] Ext: [no gross muscle atrophy], [no edema], [no contractures] Neuro: [ CN II-XI grossly intact], [no focal neuro deficits] Psych: Lethargic, oriented to person and place, [appropriate affect] Assessment: Hypoxic and hypercapnic respiratory failure, suspect secondary to undiagnosed acute COPD exacerbation -Patient's imaging revealed findings of severe emphysema with family including daughter and at the bedside reporting that she is a lifelong smoker -Low suspicion for PE at this time as patient has been on heparin infusion and underwent chest CTA earlier today which was negative for PE Plan: Chest x-ray obtained showing bibasilar atelectasis ABG obtained and reviewed showing hypoxia with mild hypercapnia Patient started on BiPAP Solu-Medrol and DuoNebs ordered Pulmonary consulted COVID testing ordered Disposition: Continue to monitor on 3 S. with plans to transfer to ICU if patient needs intubation. Discussed the patient's guarded prognosis with the family at the bedside who were in agreement with a trial of BiPAP and would like to avoid intubation if possible. A Total of 60 minutes of critical care time was spent on the complex care of this patient.
[2024-08-20] MEDS ORDERED: Potassium Replacement Protocol 1 EACH MISC MISCELLANE PRN (03:25)
--- NOTE | 2024-08-20 03:29 | P.CNPUL ---
History of Present Illness Consult date: 08/20/24 Requesting physician: Becky Rios Reason for consult: COPD Chief complaint: Respiratory distress hypoxia History of present illness: Pulmonology was consulted, as the patient was found to be hypoxic and in some respiratory distress during a rapid response on the cardiac stepdown unit last night. Patient is a 64-year-old white female with past medical history significant for high cholesterol. Never reportedly officially diagnosed with COPD; however, was prescribed some inhalers on outpatient basis which she never picked up. Does carry a significant smoking history, currently down to 10 c igarettes/day. Patient is a poor historian. HPI supplemented by who is at bedside. Apparently, patient's was up [employer] over the weekend. He left evening. He attempted to call his and again Tuesday. No answer on either attempt. He returned Tuesday, and found his on the floor. The electric stove was on, and pot was dry. He believes she may have been on the floor for more than a day. EMS brought the patient to the emergency department on 08/18/24. Extensive workup was performed. CT of the head and C-spine did not show any acute intracranial abnormality. No mass effect or midline shift. No acute fracture or subluxation of the C-spine. For minimal narrowing of C5-C6. X-ray of bilateral hips and pelvis suggesting a right femoral neck fracture. Patient was admitted to the cardiac stepdown unit. Patient was having increased oxygen demands yesterday. Chest CTA did not show any evidence of pulmonary embolism. Marked severe emphysematous changes. Incidental cholelithiasis. Late last night, a rapid response was called for increased oxygen demands. Reportedly had audible wheezing. ABG was performed, I believe on a 15 L nonrebreather. PaO2 66, pCO2 46, pH of 7.24. Patient currently on BiPAP with settings 14/8 and FiO2 of 100%. Patient is tachypneic. Breathing in the low 30s. Tidal volumes around 600 cc. Appears fatigued. No accessory muscle use. She is alert and able to answer questioning, but does not offer much information unless directly asked. Does not recall exact events leading to being found on the floor. Denies infectious symptoms. Denies chest pain. Follow-up chest x-ray again showing no acute cardiopulmonary process. Patient is currently on a IV heparin infusion for elevated troponins. Serial troponins were elevated at 0.3 and 0.22 respectively. Cardiology is following. Most recent CBC: WBC count 6.6, hemoglobin 13.9, hematocrit 44.4, platelets 150. Most recent CMP: Sodium 142, potassium 3.2, chloride 115, serum bicarb 17, BUN 7, creatinine 0.5, glucose 113. LFTs unremarkable. Total bilirubin 1.3. CK is elevated and trending up, most recent result 1375. Normal saline continues at 130 mL/h. Negative for COVID. Respiratory status is currently marginal, and she will require close monitoring. Review of Systems Constitutional: Denies chills, Denies fever, Denies poor appetite, Denies weight gain, Denies weight loss Ears, nose, mouth and throat: Denies headache, Denies hoarseness, Denies nasal congestion, Denies nasal discharge, Denies post-nasal drip, Denies sinus pain, Denies sinus pressure, Denies sore throat Cardiovascular: Denies chest pain, Denies orthopnea, Denies palpitations, Denies paroxysmal nocturnal dyspnea Respiratory: Reports dyspnea, Reports wheezing, Denies congestion, Denies cough, Denies excessive sputum, Denies hemoptysis, Denies home oxygen, Denies pain on inspiration, Denies respiratory infections Gastrointestinal: Denies change in bowel habits, Denies constipation, Denies diarrhea, Denies nausea, Denies vomiting Genitourinary: Denies dysuria, Denies flank pain, Denies hematuria, Denies urinary frequency Musculoskeletal: Denies limitation of motion Integumentary: Denies rash Neurological: Reports confusion, Reports memory loss, Denies change in speech, Denies head injury, Denies headaches, Denies paralysis, Denies seizures, Denies syncope, Denies visual changes Psychiatric: Denies anxiety, Denies depression Past Medical History Past Medical History: No Reported History History of Any Multi-Drug Resistant Organisms: None Reported Past Surgical History: Section Past Anesthesia/Blood Transfusion Reactions: No Reported Reaction Past Psychological History: No Psychological Hx Reported Smoking Status: Current every day smoker Past Alcohol Use History: None Reported Past Drug Use History: None Reported Medications and Allergies Home Medications Medication Instructions Recorded Confirmed Type Atorvastatin [Lipitor] 40 mg PO DAILY 08/19/24 08/19/24 History Allergies Allergy/AdvReac Type Severity Reaction Status Date / Time No Known Allergies Allergy Verified 08/19/24 10:29 Physical Exam Vitals: Vital Signs Temp Pulse Pulse Resp BP Pulse Ox FiO2 08/20/24 00:16 100 08/19/24 23:02 75 27 H 118/74 96 100 08/19/24 21:49 81 34 H 111/77 97 80 08/19/24 21:40 80 08/19/24 20:54 84 08/19/24 20:35 78 08/19/24 20:14 100 08/19/24 20:00 90 25 H 105/73 79 L 08/19/24 16:00 98.2 F 95 20 135/76 92 L 08/19/24 14:00 80 20 08/19/24 12:00 98.7 F 20 132/71 94 L 08/19/24 09:26 98.3 F 80 16 126/75 100 08/19/24 03:24 82 19 126/82 98 Intake and Output 08/19/24 08/19/24 08/20/24 14:59 22:59 06:59 Intake Total 26.962 Output Total 500 Balance -473.038 Intake: Intake, IV Titration 26.962 Amount Heparin Sod,Pork in 0.45% 26.962 NaCl 25,000 unit In 0.45 % NaCl 1 250ml.bag @ 12 UNITS/KG/HR 3.66 mls/hr IV .Q24H [facility] Rx#: [id number] Output: Urine 500 Other: Voiding Method External Catheter External Catheter External Catheter # Voids 1 1 GENERAL EXAM: Alert, 64-year-old white female, on BiPAP, tachypneic, appears fatigued,. HEAD: Normocephalic and atraumatic EYES: Normal reaction of pupils, equal size. NOSE: Clear with pink turbinates. THROAT: No erythema or exudates. NECK: No masses, no JVD. CHEST: No chest wall deformity. LUNGS: Equal air entry with markedly diminished lung sounds bilaterally. On BiPAP with settings 14/8, and FiO2 of 100%. Generating tidal volumes of around 600 mL, respiratory rate 30 breaths/min. Able to answer in 2-3 word phrases. No accessory muscle use. CVS: S1 and S2 normal with no audible murmur, regular rhythm. No extra heart sounds ABDOMEN: No hepatosplenomegaly, active bowel sounds, no guarding or rigidity. SPINE: No scoliosis or deformity SKIN: No rashes CENTRAL NERVOUS SYSTEM: No focal deficits, tone is normal in all 4 extremities. EXTREMITIES: There is no peripheral edema, clubbing, or cyanosis. Peripheral pulses are intact. Results - Laboratory Findings CBC and BMP: 08/19/24 22:54 08/19/24 22:54 ABG ABG pH 7.24 (7.35-7.45) L 08/19/24 20:32 ABG pCO2 46 mmHg (35-45) H 08/19/24 20:32 ABG pO2 66 mmHg (83-108) L 08/19/24 20:32 ABG O2 Saturation 90.9 % (94-97) L 08/19/24 20:32 PT/INR, D-dimer PT 10.4 sec (10.0-12.5) 08/19/24 11:17 INR 0.9 (<1.2) 08/19/24 11:17 D-Dimer 1.17 mg/L FEU (<0.60) H 08/19/24 11:17 Abnormal lab findings: Abnormal Labs 08/18/24 08/18/24 08/18/24 20:27 20:27 20:27 Hct 50.5 H Neutrophils # 8.4 H Lymphocytes # 0.5 L APTT 21.1 L D-Dimer ABG pH ABG pCO2 ABG pO2 ABG HCO3 ABG O2 Saturation VBG pCO2 VBG HCO3 Potassium Chloride 109 H Carbon Dioxide 19 L Creatinine Glucose 136 H POC Glucose (mg/dL) Plasma Lactic Acid Wan Total Bilirubin 1.6 H AST 47 H Creatine Kinase Troponin I Total Protein 08/18/24 08/18/24 08/18/24 20:27 20:27 21:17 Hct Neutrophils # Lymphocytes # APTT D-Dimer ABG pH ABG pCO2 ABG pO2 ABG HCO3 ABG O2 Saturation VBG pCO2 VBG HCO3 Potassium Chloride Carbon Dioxide Creatinine Glucose POC Glucose (mg/dL) Plasma Lactic Acid Wan 4.3 H* Total Bilirubin AST Creatine Kinase 1096 H* Troponin I 0.300 H* Total Protein 08/18/24 08/18/24 08/19/24 21:17 21:17 06:11 Hct Neutrophils # 8.4 H Lymphocytes # 0.7 L APTT D-Dimer ABG pH ABG pCO2 ABG pO2 ABG HCO3 ABG O2 Saturation VBG pCO2 32 L VBG HCO3 16 L Potassium Chloride Carbon Dioxide Creatinine Glucose POC Glucose (mg/dL) Plasma Lactic Acid Wan 2.4 H* Total Bilirubin AST Creatine Kinase Troponin I Total Protein 08/19/24 08/19/24 08/19/24 06:11 06:52 11:17 Hct Neutrophils # Lymphocytes # APTT D-Dimer 1.17 H ABG pH ABG pCO2 ABG pO2 ABG HCO3 ABG O2 Saturation VBG pCO2 VBG HCO3 Potassium 3.3 L Chloride 110 H Carbon Dioxide 21 L Creatinine 0.46 L Glucose POC Glucose (mg/dL) Plasma Lactic Acid Wan Total Bilirubin AST 50 H Creatine Kinase 1375 H* Troponin I 0.215 H* Total Protein 5.7 L 08/19/24 08/19/24 08/19/24 11:17 18:54 20:08 Hct Neutrophils # 8.0 H Lymphocytes # 0.7 L APTT 34.7 H D-Dimer ABG pH ABG pCO2 ABG pO2 ABG HCO3 ABG O2 Saturation VBG pCO2 VBG HCO3 Potassium Chloride Carbon Dioxide Creatinine Glucose POC Glucose (mg/dL) 115 H Plasma Lactic Acid Wan Total Bilirubin AST Creatine Kinase Troponin I Total Protein 08/19/24 08/19/24 08/19/24 20:32 22:54 22:54 Hct Neutrophils # Lymphocytes # 0.5 L APTT D-Dimer ABG pH 7.24 L ABG pCO2 46 H ABG pO2 66 L ABG HCO3 20 L ABG O2 Saturation 90.9 L VBG pCO2 VBG HCO3 Potassium 3.2 L Chloride 115 H Carbon Dioxide 17 L Creatinine 0.50 L Glucose 113 H POC Glucose (mg/dL) Plasma Lactic Acid Wan Total Bilirubin AST Creatine Kinase Troponin I Total Protein - Diagnostic Findings Chest x-ray: image reviewed CT scan - chest: image reviewed Assessment and Plan Assessment: Acute hypoxemic and hypercapnic respiratory failure, possibly secondary to acute COPD exacerbation Fall Traumatic right femoral neck fracture, orthopedics [facility], this will have to be postponed Rhabdomyelosis Non-anion gap metabolic acidosis, possibly secondary to normal saline infusion Elevated troponins, rule out non-ST elevation HI, currently on heparin infusion per protocol History of hyperlipidemia Chronic ongoing tobacco dependence, with over [id number] history Plan: Patient's medications, labs, imaging reviewed Recently placed on BiPAP during rapid response, if respiratory status remains marginal, she will be transferred to the intensive care unit. In the meantime, continue on BiPAP with current settings Start patient on combination of DuoNebs [id number], formoterol inhalation, budesonide inhalation, and IV Solu-Medrol COVID-negative Chest CTA negative for pulmonary embolism Elevated serial troponins Patient continues on heparin infusion per protocol Transthoracic echocardiogram pending Cardiology is following Continue to monitor renal function and IV maintenance fluids. Patient's right hip fracture repair will likely have to be postponed. GI prophylaxis: Protonix VTE prophylaxis: Deferred as patient is on heparin infusion per protocol; SCDs ordered We will continue to follow, additional recommendations forthcoming. I have personally seen and examined the patient, performed the documentation and the assessment and plan as written. Number of minutes spent on the visit:20 Time with Patient: Greater than 30
[2024-08-20] MEDS: methylPREDNISolone SOD SUCCI 125 MG/2 ML VIAL IV SCH (05:47)
[2024-08-20 06:19] LABS: Basophils % (A) 0 %; Eosinophils % (A) 1 %; HCT 41.2 % (34.0-46.0); HGB 12.9 gm/dL (11.4-16.0); Hypochromasia Moderate; Lymphocytes # (A) 0.4 k/uL (1.0-4.8); Lymphocytes % (A) 5 %; MCHC 31.3 g/dL (31.0-37.0); MCV 95.9 fL (80.0-100.0); Mean Platelet Volume 8.6; Monocytes # (A) 0.5 k/uL (0-1.0); Monocytes % (A) 7 %; Neutrophils # (A) 5.9 k/uL (1.3-7.7); Neutrophils % (A) 87 %; Platelet Count 153 k/uL (150-450); RDW 14.4 % (11.5-15.5); WBC 6.8 k/uL (3.8-10.6)
[2024-08-20 06:23] LABS: Partial Thromboplastin Time 41.6 sec (22.0-30.0); Prothrombin Time 10.8 sec (10.0-12.5)
--- NOTE | 2024-08-20 08:54 | P.PN ---
Subjective Progress Note Date: 08/20/24 Overnight, patient developed hypoxia with ABG demonstrating findings of hypercarbic respiratory failure. Patient was subsequently placed on BiPAP with improvement of her SaO2 to 100% with settings of 14/8, FiO2 of 100%. Yesterday, cardiology evaluated the patient and due to elevated troponin felt consideration of NSTEMI was necessary, and therefore did not yet cleared the patient for surgery. The troponins are elevated, and EKG demonstrates findings of ST depressions in lateral leads, however, there is a lot of baseline noise in the EKG making it difficult to fully interpret. Troponins actually trended down in this patient. This represents a very challenging case of a patient with the possibility of perioperative SD in addition to femoral neck fracture who is extremely cachectic and with likely end-stage COPD. This patient is very high risk for surgery, however, alternative options are limited. Cardiology would like to do an ischemic evaluation prior to clearing this patient for surgery. Gen: In moderate distress from pain, nontoxic, severely cachectic woman with a BMI of 8.9 HEENT: normocephalic, atraumatic, hearing acuity is intant, mucous membranes moist CVS: perfusing all extremities well, no pitting edema, Respiratory: symmetric chest expansion, no accessory muscle use, GI: soft, NTTP, ND, : no suprapubic tenderness, no CVA tenderness MSK/Derm: no rashes, cyanosis Neuro: CN II-XII intact, no motor weakness, Psych: cooperative, euthymic mood, judgment and insight is intact Hospital course: Patient is a 64-year-old female with no known PMH who was brought into the emergency room after she was found on the floor by her . Head/cervical spine CT in the emergency room was unremarkable with neck CT also unremarkable. Pelvis x-ray did reveal a right sided femoral neck fracture with chest x-ray also unremarkable. EKG revealed sinus rhythm at 87 bpm with left axis deviation with poor baseline as reviewed by me. Laboratory evaluation was remarkable for lactic acid 4.3, troponin 0.3, creatinine kinase 1096, serum alcohol less than 10, total bilirubin 1.6, AST 47, hemoglobin 15.9. Assessment/plan: Acute Hypoxemic and Hypercarbic Respiratory Failure Severe Cachexia -likely r/t End-stage COPD +/- malignancy - pulmonology consulted - continue BIPAP - pt will likely benefit from goals of care discussion regarding palliative care/hospice - sales merchandise associate consulted - nutrition labs ordered Rhabdomyolysis Elevated troponin, likely type II SD in setting of rhabdomyolysis and dehydration Lactic acidosis - cardiology consulted - continue IVF - echo pending - stress test vs LHC - heparin gtt, ASA, statin Right femoral neck fracture Preoperative evaluation -[facility] estimates risk of mace at 1%, though this likely severely underestimates her risk given her severe lung disease -cardiology has not provided clearance due to concern over possibility of Type I NSTEMI, I will defer clearance to them Pt is Full Code DVT PPx: on heparin gtt Objective - Vital Signs Vital signs: Vital Signs Temp 98.9 F 08/20/24 08:10 Pulse 68 08/20/24 08:10 Resp 20 08/20/24 08:10 BP 101/68 08/20/24 08:10 Pulse Ox 100 08/20/24 08:10 FiO2 90 08/20/24 08:10 Intake & Output 08/19/24 08/20/24 08/20/24 18:59 06:59 18:59 Intake Total 75.838 Output Total 500 Balance -424.162 Weight 22 kg Intake: Intake, IV Titration 75.838 Amount Heparin Sod,Pork in 0.45% 75.838 NaCl 25,000 unit In 0.45 % NaCl 1 250ml.bag @ 12 UNITS/KG/HR 3.66 mls/hr IV .Q24H [facility]PLAC[facility] Rx#: [id number] Output: Urine 500 Other: Voiding Method External Catheter External Catheter # Voids 1 1 - Labs CBC & Chem 7: 08/20/24 05:47 08/19/24 22:54 Labs: Abnormal Lab Results - Last 24 Hours (Table) 08/19/24 08/19/24 08/19/24 Range/Units 11:17 11:17 18:54 Neutrophils # 8.0 H (1.3-7.7) k/uL Lymphocytes # 0.7 L (1.0-4.8) k/uL APTT 34.7 H (22.0-30.0) sec D-Dimer 1.17 H (<0.60) mg/L FEU ABG pH (7.35-7.45) ABG pCO2 (35-45) mmHg ABG pO2 (83-108) mmHg ABG HCO3 (21-25) mmol/L ABG O2 Saturation (94-97) % Potassium (3.5-5.1) mmol/L Chloride (98-107) mmol/L Carbon Dioxide (22-30) mmol/L Creatinine (0.52-1.04) mg/dL Glucose (74-99) mg/dL POC Glucose (mg/dL) (70-110) mg/dL 08/19/24 08/19/24 08/19/24 Range/Units 20:08 20:32 22:54 Neutrophils # (1.3-7.7) k/uL Lymphocytes # 0.5 L (1.0-4.8) k/uL APTT (22.0-30.0) sec D-Dimer (<0.60) mg/L FEU ABG pH 7.24 L (7.35-7.45) ABG pCO2 46 H (35-45) mmHg ABG pO2 66 L (83-108) mmHg ABG HCO3 20 L (21-25) mmol/L ABG O2 Saturation 90.9 L (94-97) % Potassium (3.5-5.1) mmol/L Chloride (98-107) mmol/L Carbon Dioxide (22-30) mmol/L Creatinine (0.52-1.04) mg/dL Glucose (74-99) mg/dL POC Glucose (mg/dL) 115 H (70-110) mg/dL 08/19/24 08/20/24 08/20/24 Range/Units 22:54 05:47 05:47 Neutrophils # (1.3-7.7) k/uL Lymphocytes # 0.4 L (1.0-4.8) k/uL APTT 41.6 H (22.0-30.0) sec D-Dimer (<0.60) mg/L FEU ABG pH (7.35-7.45) ABG pCO2 (35-45) mmHg ABG pO2 (83-108) mmHg ABG HCO3 (21-25) mmol/L ABG O2 Saturation (94-97) % Potassium 3.2 L (3.5-5.1) mmol/L Chloride 115 H (98-107) mmol/L Carbon Dioxide 17 L (22-30) mmol/L Creatinine 0.50 L (0.52-1.04) mg/dL Glucose 113 H (74-99) mg/dL POC Glucose (mg/dL) (70-110) mg/dL
[2024-08-20] MEDS: FORMOTEROL FUMARATE 20 MCG/2 ML NEBU INHALATION SCH (09:41)
[2024-08-20] MEDS: IPRATROPIUM-ALBUTEROL 3 ML NEB INHALATION SCH (09:41)
[2024-08-20] MEDS: BUDESONIDE 1 MG/2 ML NEBU INHALATION SCH (09:41)
[2024-08-20] MEDS: PANTOPRAZOLE 40 MG/10 ML VIAL IVP SCH (10:00)
--- NOTE | 2024-08-20 10:57 | P.PN ---
Subjective Progress Note Date: 08/20/24 This is a 64-year-old female who is admitted for NSTEMI and also right hip fracture. Patient had an episode of respiratory distress last night and is undergoing further testing by cardiology and pulmonology. Patient is seen and evaluated at bedside today and is currently on BiPAP. Objective - Vital Signs Vital signs: Vital Signs Temp 98.9 F 08/20/24 08:10 Pulse 76 08/20/24 10:05 Resp 20 08/20/24 08:10 BP 101/68 08/20/24 08:10 Pulse Ox 100 08/20/24 08:10 FiO2 80 08/20/24 09:41 Intake & Output 08/19/24 08/20/24 08/20/24 18:59 06:59 18:59 Intake Total 75.838 Output Total 500 Balance -424.162 Weight 22 kg Intake: Intake, IV Titration 75.838 Amount Heparin Sod,Pork in 0.45% 75.838 NaCl 25,000 unit In 0.45 % NaCl 1 250ml.bag @ 12 UNITS/KG/HR 3.66 mls/hr IV .Q24H [facility] Rx#: [id number] Output: Urine 500 Other: Voiding Method External Catheter External Catheter External Catheter # Voids 1 1 - Exam On exam patient is resting comfortably in bed in no acute distress. Patient is alert. Right lower extremity: Shortened and externally rotated. Skin is intact. There is mild swelling present. The right lower extremity is warm and well-perfused. Sensation is intact. Patient has good range of motion of the right foot and ankle. Calf is soft and nontender to palpation. Neurovascular status and circulatory status are intact. - Labs CBC & Chem 7: 08/20/24 05:47 08/19/24 22:54 Labs: Abnormal Lab Results - Last 24 Hours (Table) 08/19/24 08/19/24 08/19/24 Range/Units 11:17 11:17 18:54 Neutrophils # 8.0 H (1.3-7.7) k/uL Lymphocytes # 0.7 L (1.0-4.8) k/uL APTT 34.7 H (22.0-30.0) sec D-Dimer 1.17 H (<0.60) mg/L FEU ABG pH (7.35-7.45) ABG pCO2 (35-45) mmHg ABG pO2 (83-108) mmHg ABG HCO3 (21-25) mmol/L ABG O2 Saturation (94-97) % Potassium (3.5-5.1) mmol/L Chloride (98-107) mmol/L Carbon Dioxide (22-30) mmol/L Creatinine (0.52-1.04) mg/dL Glucose (74-99) mg/dL POC Glucose (mg/dL) (70-110) mg/dL 08/19/24 08/19/24 08/19/24 Range/Units 20:08 20:32 22:54 Neutrophils # (1.3-7.7) k/uL Lymphocytes # 0.5 L (1.0-4.8) k/uL APTT (22.0-30.0) sec D-Dimer (<0.60) mg/L FEU ABG pH 7.24 L (7.35-7.45) ABG pCO2 46 H (35-45) mmHg ABG pO2 66 L (83-108) mmHg ABG HCO3 20 L (21-25) mmol/L ABG O2 Saturation 90.9 L (94-97) % Potassium (3.5-5.1) mmol/L Chloride (98-107) mmol/L Carbon Dioxide (22-30) mmol/L Creatinine (0.52-1.04) mg/dL Glucose (74-99) mg/dL POC Glucose (mg/dL) 115 H (70-110) mg/dL 08/19/24 08/20/24 08/20/24 Range/Units 22:54 05:47 05:47 Neutrophils # (1.3-7.7) k/uL Lymphocytes # 0.4 L (1.0-4.8) k/uL APTT 41.6 H (22.0-30.0) sec D-Dimer (<0.60) mg/L FEU ABG pH (7.35-7.45) ABG pCO2 (35-45) mmHg ABG pO2 (83-108) mmHg ABG HCO3 (21-25) mmol/L ABG O2 Saturation (94-97) % Potassium 3.2 L (3.5-5.1) mmol/L Chloride 115 H (98-107) mmol/L Carbon Dioxide 17 L (22-30) mmol/L Creatinine 0.50 L (0.52-1.04) mg/dL Glucose 113 H (74-99) mg/dL POC Glucose (mg/dL) (70-110) mg/dL Assessment and Plan (1) Fracture of femoral neck, right, closed Current Visit: Yes Status: Acute Code(s): S72.001A - FRACTURE OF UNSP PART OF NECK OF RIGHT FEMUR, INIT SNOMED Code(s): 564110537 (2) NSTEMI (non-ST elevated myocardial infarction) Current Visit: Yes Status: Acute Code(s): I21.4 - NON-ST ELEVATION (NSTEMI) MYOCARDIAL INFARCTION SNOMED Code(s): 43945325 (3) Rhabdomyolysis Current Visit: Yes Status: Acute Code(s): M62.82 - RHABDOMYOLYSIS SNOMED Code(s): 217576096 Plan: 1. Patient is to be NPO after midnight. 2. Continue bedrest and pain control. 3. Appreciate input from internal medicine, pulmonology and cardiology regarding clearance for right hip hemiarthroplasty. 4. We are planning for right hip hemiarthroplasty on 08/21/2024 pending medical clearance and patient consent.
[2024-08-20 11:12] LABS: % Iron Saturation 15.18 (12.00-45.00); Iron 34 UG/DL (50-170); Magnesium 1.8 mg/dL (1.5-2.4); Total Iron Binding Capacity 224 UG/DL (228-460)
[2024-08-20 11:13] LABS: Blood Urea Nitrogen 7.9 mg/dL (9.0-27.0); Calcium 8.6 mg/dL (8.7-10.3); Carbon Dioxide 14.1 mmol/L (21.6-31.8); Chloride 112 mmol/L (96-109); Glucose 116 mg/dL (70-110); Potassium 4.5 mmol/L (3.5-5.5); Sodium 146 mmol/L (135-145)
--- NOTE | 2024-08-20 12:16 | CA ---
Transthoracic Echo Report Name: Prachi Lind Age: 64 Gender: F : 1960 Exam Date: 08/20/2024 07:49 Exam Location: [place] [facility] Ht (in): 62 Wt (lb): 167 Ordering Physician: Ann Russell Attending/Referring Phys: Flanging Roll Operator Mariola Romero RDCS Procedure CPT: Indications: elevated trop Cardiac Hx: Technical Quality: Fair Contrast 1: Total Dose (mL): Contrast 2: Total Dose (mL): MEASUREMENTS (Male / Female) Normal Values 2D ECHO LV Diastolic Diameter PLAX 4.4 cm 4.2 - 5.9 / 3.9 - 5.3 cm LV Systolic Diameter PLAX 2.5 cm IVS Diastolic Thickness 0.7 cm 0.6 - 1.0 / 0.6 - 0.9 cm LVPW Diastolic Thickness 0.9 cm 0.6 - 1.0 / 0.6 - 0.9 cm LV Relative Wall Thickness 0.4 RV Internal Dim ED PLAX 1.1 cm LV Diastolic Volume MOD BP 30.8 cm??? 67 - 155 / 56 - 104 cm??? LV Systolic Volume MOD BP 11.8 cm??? 22 - 58 / 19 - 49 cm??? LV Ejection Fraction MOD BP 61.6 % >= 55 % LV Cardiac Index MOD BP 800.9 cm???/min???m??? LV Diastolic Volume MOD 4C 25.1 cm??? LV Systolic Volume MOD 4C 13.3 cm??? LV Ejection Fraction MOD 4C 47.2 % LV Cardiac Index MOD 4C 499.4 cm???/min???m??? LV Diastolic Length 4C 5.1 cm LV Systolic Length 4C 4.4 cm LV Diastolic Volume MOD 2C 33.2 cm??? LV Systolic Volume MOD 2C 9.4 cm??? LV Ejection Fraction MOD 2C 71.6 % LV Cardiac Index MOD 2C 1003.7 cm???/min???m??? LV Diastolic Length 2C 5.9 cm LV Systolic Length 2C 5.0 cm M-MODE Aortic Root Diameter MM 2.6 cm LA Systolic Diameter MM 2.7 cm LA Ao Ratio MM 1.0 AV Cusp Separation MM 1.5 cm DOPPLER Mitral E Point Velocity 93.9 cm/s Mitral A Point Velocity 91.2 cm/s Mitral E to A Ratio 1.0 MV Deceleration Time 142.9 ms MV E' Velocity 8.2 cm/s Mitral E to MV E' Ratio 11.5 TR Peak Velocity 260.2 cm/s TR Peak Gradient 27.1 mmHg Right Ventricular Systolic Press 44.5 mmHg FINDINGS Left Ventricle Left ventricular ejection fraction is estimated at 55-60%. Left ventricular cavity size normal. Left ventricular wall thickness normal. Normal left ventricular systolic function with no obvious regional wall motion abnormalities. Right Ventricle Right ventricle not well visualized. Mild pulmonary hypertension. Right Atrium Normal right atrial size. Left Atrium Normal left atrial size. Mitral Valve Structurally normal mitral valve. Mild mitral regurgitation. No mitral stenosis. Aortic Valve Trileaflet aortic valve. Thickened aortic valve without stenosis. No aortic regurgitation. Tricuspid Valve Structurally normal tricuspid valve. mild tricuspid regurgitation. No tricuspid stenosis. Pulmonic Valve Structurally normal pulmonic valve. No pulmonic regurgitation. No pulmonic stenosis. Pericardium No pericardial or pleural effusion. Aorta Normal size aortic root and proximal ascending aorta. CONCLUSIONS 1. Normal left ventricle size and systolic function 2. Mild mitral and tricuspid regurgitation Previewed by: Dr. Nupur Simmons MD (Electronically Signed) Final Date: 20 August 2024 12:15
[2024-08-20 12:41] VITALS: BMI 21.5
--- NOTE | 2024-08-20 16:58 | P.PN ---
Subjective Progress Note Date: 08/20/24 History of present illness: Patient is a pleasant 64-year-old female with no significant past medical hist ory who presented to the emergency department after she was found on the floor by her . 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 She reports that she was cooking 2 days ago when she suddenly just collapsed to the ground injuring her leg and was unable to get up for the next 24 hours until her found her. She denies having any loss of consciousness however is uncertain how she actually fell. She does report a significant family history of father, sister, brother all having CAD. She does smoke, denies any alcohol use. Labs reviewed: Troponin 0.215, 0.300, CK 1096, 1375. Patient appears pale with a weak raspy voice. She denies any chest pain or pressure. She does report hip pain with movement. She was found to have a right femoral neck fracture and orthopedics is planning for surgery. August 20, 2024 Patient denies having any active chest pain chest pressure. She is on BiPAP. Appears uncomfortable because of pain in the right hip. PHYSICAL EXAMINATION: HEENT: Head is atraumatic, normocephalic. Pupils are equal, round. Sclerae anicteric. Conjunctivae are clear. Mucous membranes of the mouth are moist. Neck is supple. There is no jugular venous distention. No carotid bruit is heard. CHEST EXAMINATION: Lungs are clear to auscultation. No chest wall tenderness is noted on palpation or with deep breathing. HEART EXAMINATION: Heart regular rate and rhythm. S1, S2 heard. No murmurs, gallops or rub. ABDOMEN: Soft, nontender. Bowel sounds are heard. EXTREMITIES: 2+ peripheral pulses with no evidence of peripheral edema and no calf tenderness noted. NEUROLOGIC EXAMINATION: Patient is awake, alert and oriented x3. IMPRESSION AND PLAN: Elevated troponin due to Rhabdomyolysis Right femoral neck fracture Severe COPD emphysema Tobacco abuse Family history of CAD Pre-operative cardiac risk assessment Echocardiogram showed preserved LVEF with no significant valve dysfunction PLAN: Discontinue IV heparin drip Patient does not have any cardiovascular contraindications to proceed with the hip surgery. However patient does have advanced COPD and emphysema which would put her at moderate to high risk. Clinically, patient is at moderate to high risk for moderate risk procedure. I would advise proceeding with caution. Recommend outpatient follow-up with cardiology with outpatient noninvasive ischemic evaluation with a stress test. Objective - Vital Signs Vital signs: Vital Signs Temp 98.2 F 08/20/24 16:00 Pulse 70 08/20/24 16:42 Resp 23 08/20/24 16:00 BP 105/72 08/20/24 16:00 Pulse Ox 99 08/20/24 16:00 FiO2 50 08/20/24 16:42 Intake & Output 08/19/24 08/20/24 08/20/24 18:59 06:59 18:59 Intake Total 75.838 29.727 Output Total 500 Balance -424.162 29.727 Weight 22 kg 53.524 kg Intake: Intake, IV Titration 75.838 29.727 Amount Heparin Sod,Pork in 0.45% 75.838 29.727 NaCl 25,000 unit In 0.45 % NaCl 1 250ml.bag @ 12 UNITS/KG/HR 3.66 mls/hr IV .Q24H [facility] Rx#: [id number] Output: Urine 500 Other: Voiding Method External Catheter External Catheter External Catheter # Voids 1 1 - Labs CBC & Chem 7: 08/20/24 05:47 08/20/24 05:47 Labs: Abnormal Lab Results - Last 24 Hours (Table) 08/19/24 08/19/24 08/19/24 Range/Units 18:54 20:08 20:32 Lymphocytes # (1.0-4.8) k/uL APTT 34.7 H (22.0-30.0) sec ABG pH 7.24 L (7.35-7.45) ABG pCO2 46 H (35-45) mmHg ABG pO2 66 L (83-108) mmHg ABG HCO3 20 L (21-25) mmol/L ABG O2 Saturation 90.9 L (94-97) % Sodium (135-145) mmol/L Potassium (3.5-5.1) mmol/L Chloride (98-107) mmol/L Carbon Dioxide (22-30) mmol/L Anion Gap (4.00-12.00) mmol/L BUN (9.0-27.0) mg/dL Creatinine (0.52-1.04) mg/dL Glucose (74-99) mg/dL POC Glucose (mg/dL) 115 H (70-110) mg/dL Calcium (8.7-10.3) mg/dL Iron (50-170) UG/DL TIBC (228-460) UG/DL Transferrin (204.0-354.0) mg/dL Vitamin D 25-Hydroxy (30.0-100.0) ng/mL 08/19/24 08/19/24 08/20/24 Range/Units 22:54 22:54 05:47 Lymphocytes # 0.5 L (1.0-4.8) k/uL APTT (22.0-30.0) sec ABG pH (7.35-7.45) ABG pCO2 (35-45) mmHg ABG pO2 (83-108) mmHg ABG HCO3 (21-25) mmol/L ABG O2 Saturation (94-97) % Sodium 146 H (135-145) mmol/L Potassium 3.2 L (3.5-5.1) mmol/L Chloride 115 H 112 H (98-107) mmol/L Carbon Dioxide 17 L 14.1 L (22-30) mmol/L Anion Gap 19.90 H (4.00-12.00) mmol/L BUN 7.9 L (9.0-27.0) mg/dL Creatinine 0.50 L (0.52-1.04) mg/dL Glucose 113 H 116 H (74-99) mg/dL POC Glucose (mg/dL) (70-110) mg/dL Calcium 8.6 L (8.7-10.3) mg/dL Iron 34 L (50-170) UG/DL TIBC 224 L (228-460) UG/DL Transferrin 160.0 L (204.0-354.0) mg/dL Vitamin D 25-Hydroxy 10.1 L (30.0-100.0) ng/mL 08/20/24 08/20/24 08/20/24 Range/Units 05:47 05:47 11:12 Lymphocytes # 0.4 L (1.0-4.8) k/uL APTT 41.6 H >200.0 H* (22.0-30.0) sec ABG pH (7.35-7.45) ABG pCO2 (35-45) mmHg ABG pO2 (83-108) mmHg ABG HCO3 (21-25) mmol/L ABG O2 Saturation (94-97) % Sodium (135-145) mmol/L Potassium (3.5-5.1) mmol/L Chloride (98-107) mmol/L Carbon Dioxide (22-30) mmol/L Anion Gap (4.00-12.00) mmol/L BUN (9.0-27.0) mg/dL Creatinine (0.52-1.04) mg/dL Glucose (74-99) mg/dL POC Glucose (mg/dL) (70-110) mg/dL Calcium (8.7-10.3) mg/dL Iron (50-170) UG/DL TIBC (228-460) UG/DL Transferrin (204.0-354.0) mg/dL Vitamin D 25-Hydroxy (30.0-100.0) ng/mL
--- NOTE | 2024-08-21 02:36 | XR ---
EXAM: XR Chest, 1 View CLINICAL HISTORY: ITS.REASON XR Reason: respiratory distress TECHNIQUE: Frontal view of the chest. COMPARISON: Portable chest single view 08/19/2024 FINDINGS: Lungs: No lobar consolidation. Subsegmental changes at the lung bases, new from the previous examination. The pulmonary vasculature demonstrates no significant radiographic abnormality. Pleural space: Unremarkable. No pneumothorax. No large pleural effusion. Heart: Unremarkable. No cardiomegaly. Mediastinum: The mediastinal contours are unremarkable, accounting for obliquity. No tracheal deviation. Bones/joints: Unremarkable. No acute fracture. IMPRESSION: No lobar consolidation. Subsegmental changes at the lung bases, new from the previous examination. This may represent subsegmental atelectasis or subtle bibasilar pneumonia. No pleural effusion or pneumothorax.
[2024-08-21 07:22] LABS: Basophils % (A) 0 %; Eosinophils % (A) 1 %; HCT 37.3 % (34.0-46.0); HGB 11.9 gm/dL (11.4-16.0); Hypochromasia Moderate; Lymphocytes # (A) 0.5 k/uL (1.0-4.8); Lymphocytes % (A) 12 %; MCH 30.8 pg (25.0-35.0); MCV 96.3 fL (80.0-100.0); Mean Platelet Volume 9.6; Monocytes # (A) 0.6 k/uL (0-1.0); Monocytes % (A) 14 %; Neutrophils # (A) 2.9 k/uL (1.3-7.7); Neutrophils % (A) 71 %; RBC 3.87 m/uL (3.80-5.40); RDW 14.4 % (11.5-15.5); WBC 4.2 k/uL (3.8-10.6)
[2024-08-21 07:44] LABS: African American GFR (CKD) >90 (>60 ml/min/1.73 sqM); Anion Gap 8 mmol/L; Blood Urea Nitrogen 14 mg/dL (7-17); Carbon Dioxide 20 mmol/L (22-30); Chloride 119 mmol/L (98-107); Glucose 132 mg/dL (74-99); Magnesium 1.9 mg/dL (1.6-2.3); Non-African American GFR(CKD) >90 (>60 ml/min/1.73 sqM); Potassium 3.7 mmol/L (3.5-5.1); Sodium 147 mmol/L (137-145)
[2024-08-21 08:12] LABS: Crenated RBC Present; Platelet Count 144 k/uL (150-450)
[2024-08-21 08:13] LABS: Poikilocytosis (M) Present
--- NOTE | 2024-08-21 09:08 | CDI ---
Documentation Clarification Form Date: 08/21/2024 From: Kristal Dumont RN CCDS Phone: [phone] Admit Date: 08/18/2024 09:51:00 PM Patient Name: Prachi Lind Visit Number: [id number] Discharge Date: ATTENTION: The Clinical Documentation Specialists (CDI) and [facility] Coding Staff appreciate your assistance in clarifying documentation. Please respond to the clarification below the line at the bottom and electronically sign. The CDI & [facility] Coding staff will review the response and follow-up if needed. Please note: Queries are made part of the Legal Health Record. If you have any questions, please contact the author of this message via ITS. Doctor/Provider: Kwadwo Samano MD: Rhabdomyolysis is documented in the H&P 08/19 and in subsequent documentation. Additional clarification regarding the type of rhabdomyolysis is requested. History/Risk Factors: 64-year-old female with no known PMH who presents after fall after unable to be contacted Tuesday evening and Tuesday afternoon Clinical Indicators: 08/18 ED note, HPI: " provides history that [place] this [place] and came back to find her on the ground a few feet from her fall but unable to get to her phone unknown how much time she was on the ground for" 08/19 H&P (Documented on Consult note), Assessment: "Rhabdomyolysis, Elevated troponin, likely type II ME in setting of rhabdomyolysis and dehydration." 08/18, 08/19 Creatine Kinase: 1096, 1375 Treatment: Normal Saline IV 1000cc bolus once 08/18, then 130cc/hour 08/18-08/21 Monitor Creatine Kinase Please clarify the type of rhabdomyolysis, if known: [ ] Traumatic rhabdomyolysis due to fall [ x] Traumatic rhabdomyolysis due to prolonged immobility [ ] Other, please specify [ ] Unable to Determine MTDD
--- NOTE | 2024-08-21 09:26 | CDI ---
Documentation Clarification Form Date: 08/21/2024 From: Kristal Dumont RN CCDS Phone: [phone] Admit Date: 08/18/2024 09:51:00 PM Patient Name: Prachi Lind Visit Number: [id number] Discharge Date: ATTENTION: The Clinical Documentation Specialists (CDI) and [facility] Coding Staff appreciate your assistance in clarifying documentation. Please respond to the clarification below the line at the bottom and electronically sign. The CDI & [facility] Coding staff will review the response and follow-up if needed. Please note: Queries are made part of the Legal Health Record. If you have any questions, please contact the author of this message via ITS. Doctor/Provider: Kwadwo Samano MD: Your patient has the documented symptom of Altered Mental Status in the ED note 08/18. Additional clarification regarding the etiology/cause of this symptom is requested. History/Risk Factors: 64-year-old female with no known PMH who presents after fall after unable to be contacted Tuesday evening and Tuesday afternoon Clinical Indicators: 08/18 Triage VS: 108/84, 97.8, 82, 16, 92% 2liter nasal cannula 08/18 ED note, HPI: "Patient's further states that she is making very confused statements" Clinical Impression: "Weakness, Debility, Dehydration, NSTEMI (non-ST elevated myocardial infarction), Altered mental status, Rhabdomyolysis, Lactic acidosis, Fall, Hip fracture, right" 08/19 Cardiology Consult, Physical Examination, Neurologic Examination: "Patient is awake, alert, and oriented x3." 08/18 Lactic Acid: 4.3, 2.4, 1.9 08/18-08/29 Total Bilirubin: 1.6, 1.3 AST: 47, 50 Creatine Kinase: 1096, 1375 08/18 CT Brain and C-spine, Impressions: "1. No acute intracranial process." Treatment: Normal Saline IV 1000cc bolus once 08/18, then 130cc/hour 08/18-08/[address] of Brain Please clarify the etiology of the symptom of Altered Mental Status: [ x ] Metabolic Encephalopathy due to elevated lactic acid, elevated creatine kinase, Elevated AST [ ] Other condition (please specify) [ ] Unable to determine MTDD
[2024-08-21] MEDS: DEXTROSE 5%-0.45% NACL 1,000 ML IV SCH (10:20)
--- NOTE | 2024-08-21 12:04 | P.PN ---
Subjective Progress Note Date: 08/21/24 Pt is cleared for surgery by medicine and cardiology. Still intermittently requires BIPAP. Likelihood of failing extubation after procedure is high and may warrant some supervision in ICU after ORIF - defer this to pulmonology. D/C NS today, add D5/0.45NS @ 150cc/hr Gen: In moderate distress from pain, nontoxic, severely cachectic woman with a BMI of 8.9 HEENT: normocephalic, atraumatic, hearing acuity is intant, mucous membranes moist CVS: perfusing all extremities well, no pitting edema, Respiratory: symmetric chest expansion, no accessory muscle use, GI: soft, NTTP, ND, : no suprapubic tenderness, no CVA tenderness MSK/Derm: no rashes, cyanosis Neuro: CN II-XII intact, no motor weakness, Psych: cooperative, euthymic mood, judgment and insight is intact Hospital course: Patient is a 64-year-old female with no known PMH who was brought into the emergency room after she was found on the floor by her . Head/cervical spine CT in the emergency room was unremarkable with neck CT also unremarkable. Pelvis x-ray did reveal a right sided femoral neck fracture with chest x-ray also unremarkable. EKG revealed sinus rhythm at 87 bpm with left axis deviation with poor baseline as reviewed by me. Laboratory evaluation was remarkable for lactic acid 4.3, troponin 0.3, creatinine kinase 1096, serum alcohol less than 10, total bilirubin 1.6, AST 47, hemoglobin 15.9. Assessment/plan: Acute Hypoxemic and Hypercarbic Respiratory Failure Severe Cachexia -likely r/t End-stage COPD +/- malignancy Vitamin D Deficiency - pulmonology consulted - BIPAP PRN, oxygen PRN - pt will likely benefit from goals of care discussion regarding palliative care/hospice - painter ordnance consulted - nutrition labs ordered - started Vit D supplement Rhabdomyolysis Elevated troponin, likely type II CA in setting of rhabdomyolysis and dehydration Lactic acidosis - cardiology consulted - continue IVF - echo with good EF, no WMA, mild pHTN (likely underestimated due to volume status) - heparin gtt d/c'd, ASA, statin Right femoral neck fracture Preoperative evaluation -NSQIP estimates risk of mace at 1%, though this likely severely underestimates her risk given her severe lung disease -pt is cleared for surgery with the understanding that she is high risk for intermediate risk procedure Pt is Full Code DVT PPx: per ortho Objective - Vital Signs Vital signs: Vital Signs Temp 98.2 F 08/21/24 08:50 Pulse 101 H 08/21/24 10:25 Resp 20 08/21/24 10:25 BP 127/81 08/21/24 08:50 Pulse Ox 88 L 08/21/24 10:25 FiO2 100 08/21/24 09:25 Intake & Output 08/20/24 08/21/24 08/21/24 18:59 06:59 18:59 Intake Total 1939.727 Output Total 400 725 Balance 1539.727 -725 Weight 53.524 kg 41.5 kg Intake: Intake, IV Titration 1459.727 Amount Heparin Sod,Pork in 0.45% 29.727 NaCl 25,000 unit In 0.45 % NaCl 1 250ml.bag @ 12 UNITS/KG/HR 3.66 mls/hr IV .Q24H [facility] Rx#: [id number] Sodium Chloride 0.9% 1, 1430 000 ml @ 130 mls/hr IV . Q7H42M [facility] Rx#:[id number] Oral 480 Output: Urine 400 725 Uretheral (Wray) 475 Other: Voiding Method External Catheter Incontinent Indwelling Catheter External Catheter - Labs CBC & Chem 7: 08/21/24 06:41 08/21/24 06:41 Labs: Abnormal Lab Results - Last 24 Hours (Table) 08/20/24 08/20/24 08/21/24 Range/Units 11:12 21:38 06:41 Plt Count 144 L (150-450) k/uL Lymphocytes # 0.5 L (1.0-4.8) k/uL APTT >200.0 H* 33.1 H (22.0-30.0) sec Sodium (137-145) mmol/L Chloride (98-107) mmol/L Carbon Dioxide (22-30) mmol/L Creatinine (0.52-1.04) mg/dL Glucose (74-99) mg/dL 08/21/24 Range/Units 06:41 Plt Count (150-450) k/uL Lymphocytes # (1.0-4.8) k/uL APTT (22.0-30.0) sec Sodium 147 H (137-145) mmol/L Chloride 119 H (98-107) mmol/L Carbon Dioxide 20 L (22-30) mmol/L Creatinine 0.48 L (0.52-1.04) mg/dL Glucose 132 H (74-99) mg/dL
--- NOTE | 2024-08-21 14:11 | P.PN ---
Subjective Progress Note Date: 08/21/24 Principal diagnosis: Hip fracture. Pulmonology was consulted, as the patient was found to be hypoxic and in some respiratory distress during a rapid response on the cardiac stepdown unit last night. Patient is a 64-year-old white female with past medical history significant for high cholesterol. Never reportedly officially diagnosed with COPD; however, was prescribed some inhalers on outpatient basis which she never picked up. Does carry a significant smoking history, currently down to 10 cigarettes/day. Patient is a poor historian. HPI supplemented by who is at bedside. Apparently, patient's was up [place] over the weekend. He left evening. He attempted to call his and again Tuesday. No answer on either attempt. He returned Tuesday, and found his on the floor. The electric stove was on, and pot was dry. He believes she may have been on the floor for more than a day. EMS brought the patient to the emergency department on 08/18/24. Extensive workup was performed. CT of the head and C-spine did not show any acute intracranial abnormality. No mass effect or midline shift. No acute fracture or subluxation of the C-spine. For minimal narrowing of C5-C6. X-ray of bilateral hips and pelvis suggesting a right femoral neck fracture. Patient was admitted to the cardiac stepdown unit. Patient was having increased oxygen demands yesterday. Chest CTA did not show any evidence of pulmonary embolism. Marked severe emphysematous changes. Incidental cholelithiasis. Late last night, a rapid response was called for increased oxygen demands. Reportedly had audible wheezing. ABG was performed, I believe on a 15 L nonrebreather. PaO2 66, pCO2 46, pH of 7.24. Patient currently on BiPAP with settings 14/8 and FiO2 of 100%. Patient is tachypneic. Breathing in the low 30s. Tidal volumes around 600 cc. Appears fatigued. No accessory muscle use. She is alert and able to answer questioning, but does not offer much information unless directly asked. Does not recall exact events leading to being found on the floor. Denies infectious symptoms. Denies chest pain. Follow-up chest x-ray again showing no acute cardiopulmonary process. Patient is currently on a IV heparin infusion for elevated troponins. Serial troponins were elevated at 0.3 and 0.22 respectively. Cardiology is following. Most recent CBC: WBC count 6.6, hemoglobin 13.9, hematocrit 44.4, platelets 150. Most recent CMP: Sodium 142, potassium 3.2, chloride 115, serum bicarb 17, BUN 7, creatinine 0.5, glucose 113. LFTs unremarkable. Total bilirubin 1.3. CK is elevated and trending up, most recent result 1375. Normal saline continues at 130 mL/h. Negative for COVID. Respiratory status is currently marginal, and she will require close monitoring. Progress note dated August 21, 2024. 64-year-old female who fell, and fractured her right hip. We are asked to see her, and improve her respiratory status, for anticipation of surgery on her hip. Unfortunately, the patient finds herself on 15 L high flow nasal cannula, or BiPAP, with settings of 14/8, and 80%. In addition, she is getting D5 with half-normal saline at 150 cc an hour. I did speak to the orthopedic surgeon about her, and I think it is a good idea to wait, until her respiratory status improves, to do her surgery. Labs today include a white count of 4.2, hemoglobin 11.9, hematocrit 37.3, and a platelet count of 144,000. Sodium 147, potassium 3.7, chlorides of 119, CO2 20, BUN 14, creatinine 0.48. Glucose is 132. Calcium is 9. Chest x-ray shows some subsegmental changes at the lung bases, which could represent atelectasis, or bibasilar pneumonia. Objective - Vital Signs Vital signs: Vital Signs Temp 98.2 F 08/21/24 08:50 Pulse 87 08/21/24 13:27 Resp 19 08/21/24 13:27 BP 127/81 08/21/24 08:50 Pulse Ox 95 08/21/24 13:27 FiO2 100 08/21/24 09:25 Intake & Output 08/20/24 08/21/24 08/21/24 18:59 06:59 18:59 Intake Total 1939.727 Output Total 400 725 Balance 1539.727 -725 Weight 53.524 kg 41.5 kg Intake: Intake, IV Titration 1459.727 Amount Heparin Sod,Pork in 0.45% 29.727 NaCl 25,000 unit In 0.45 % NaCl 1 250ml.bag @ 12 UNITS/KG/HR 3.66 mls/hr IV .Q24H [facility] Rx#: [id number] Sodium Chloride 0.9% 1, 1430 000 ml @ 130 mls/hr IV . Q7H42M [facility] Rx#:[id number] Oral 480 Output: Urine 400 725 Uretheral (Wray) 475 Other: Voiding Method External Catheter Incontinent Indwelling Catheter External Catheter - Exam No acute distress, oriented 3. 15 L high flow nasal cannula noted. HEENT examination is grossly unremarkable. Mucous membranes are moist. No oral lesions. Neck supple. Full range of motion. No adenopathy thyromegaly or neck vein distention. Cardiovascular examination reveals regular rhythm rate. S1-S2 normal. No S3 or S4. No discernible murmur noted. Lungs reveal diminished bilateral breath sounds. Mild scattered wheezes and rhonchi. No crackles. Breath sounds are equal bilaterally. Abdomen soft bowel sounds are heard. No masses or tenderness. Extremities are intact. No cyanosis clubbing or edema. Skin is without rash or lesion. Neurologic examination is brief but nonfocal. - Labs CBC & Chem 7: 08/21/24 06:41 08/21/24 06:41 Labs: Abnormal Lab Results - Last 24 Hours (Table) 08/20/24 08/21/24 08/21/24 Range/Units 21:38 06:41 06:41 Plt Count 144 L (150-450) k/uL Lymphocytes # 0.5 L (1.0-4.8) k/uL APTT 33.1 H (22.0-30.0) sec Sodium 147 H (137-145) mmol/L Chloride 119 H (98-107) mmol/L Carbon Dioxide 20 L (22-30) mmol/L Creatinine 0.48 L (0.52-1.04) mg/dL Glucose 132 H (74-99) mg/dL Assessment and Plan Assessment: Acute hypoxemic and hypercapnic respiratory failure, secondary to acute COPD exa cerbation. S/P fall, with traumatic right femoral neck fracture. Rhabdomyolysis. Non-anion gap metabolic acidosis. Elevated troponins, rule out non-ST elevation PA. History of hyperlipidemia. Chronic ongoing tobacco dependence of 30 years. Plan: Plan dated August 21, 2024. In my opinion, the patient is too sick for surgery at this time. The patient will continue on current medications, to improve her overall lung function. The patient would likely not survive surgery at this point. I expressed that to the orthopedic surgeon. He will decide to wait on this patient at this time. Additional recommendations and suggestions are forthcoming. We will continue to follow make recommendations. She is currently on appropriate bronchodilators, corticosteroids, etc. Time with Patient: Less than 30
--- NOTE | 2024-08-21 15:49 | P.PN ---
Subjective Progress Note Date: 08/21/24 This is a 64-year-old female who is admitted for multiple medical problems. Orthopedics is consulted for right hip fracture. Patient is being treated for respiratory failure. Patient is seen and evaluated at bedside today. Family is present in the room. Patient has not been cleared for surgery at this time per internal medicine and pulmonology. Objective - Vital Signs Vital signs: Vital Signs Temp 98.2 F 08/21/24 08:50 Pulse 87 08/21/24 13:27 Resp 19 08/21/24 13:27 BP 127/81 08/21/24 08:50 Pulse Ox 95 08/21/24 13:27 FiO2 100 08/21/24 09:25 Intake & Output 08/20/24 08/21/24 08/21/24 18:59 06:59 18:59 Intake Total 1939.727 Output Total 400 725 Balance 1539.727 -725 Weight 53.524 kg 41.5 kg Intake: Intake, IV Titration 1459.727 Amount Heparin Sod,Pork in 0.45% 29.727 NaCl 25,000 unit In 0.45 % NaCl 1 250ml.bag @ 12 UNITS/KG/HR 3.66 mls/hr IV .Q24H [facility] Rx#: [id number] Sodium Chloride 0.9% 1, 1430 000 ml @ 130 mls/hr IV . Q7H42M [facility] Rx#:[id number] Oral 480 Output: Urine 400 725 Uretheral (Wray) 475 Other: Voiding Method External Catheter Incontinent Indwelling Catheter External Catheter - Exam On exam patient is resting comfortably in bed in no acute distress. Patient is alert. Right lower extremity: Shortened and externally rotated. Skin is intact. There is mild swelling present. The right lower extremity is warm and well-perfused. Sensation is intact. Patient has good range of motion of the right foot and ankle. Calf is soft and nontender to palpation. Neurovascular status and circulatory status are intact. - Labs CBC & Chem 7: 08/21/24 06:41 08/21/24 06:41 Labs: Abnormal Lab Results - Last 24 Hours (Table) 08/20/24 08/21/24 08/21/24 Range/Units 21:38 06:41 06:41 Plt Count 144 L (150-450) k/uL Lymphocytes # 0.5 L (1.0-4.8) k/uL APTT 33.1 H (22.0-30.0) sec Sodium 147 H (137-145) mmol/L Chloride 119 H (98-107) mmol/L Carbon Dioxide 20 L (22-30) mmol/L Creatinine 0.48 L (0.52-1.04) mg/dL Glucose 132 H (74-99) mg/dL Assessment and Plan (1) Fracture of femoral neck, right, closed Current Visit: Yes Status: Acute Code(s): S72.001A - FRACTURE OF UNSP PART OF NECK OF RIGHT FEMUR, INIT SNOMED Code(s): 838423777 (2) NSTEMI (non-ST elevated myocardial infarction) Current Visit: Yes Status: Acute Code(s): I21.4 - NON-ST ELEVATION (NSTEMI) MYOCARDIAL INFARCTION SNOMED Code(s): 03542760 (3) Rhabdomyolysis Current Visit: Yes Status: Acute Code(s): M62.82 - RHABDOMYOLYSIS SNOMED Code(s): 401162010 Plan: 1. Patient is to be NPO after midnight. 2. Continue bedrest and pain control. 3. Appreciate input from internal medicine, pulmonology and cardiology regarding clearance for right hip hemiarthroplasty. Patient is not cleared for surgery at this time. 4. If the patient's condition improves we will proceed with right hip hemiarthroplasty on 08/22/2024, otherwise we will continue with conservative treatment.
[2024-08-21 16:29] LABS: Appearance,Urine Clear (Clear); Bilirubin,Urine Negative (Negative); Blood,Urine Negative (Negative); Color,Urine Colorless; Glucose,Urine (UA) 4+ (Negative); Leukocyte Esterase,Urine Negative (Negative); Nitrite,Urine Negative (Negative); PH, Urine 5.5 (5.0-8.0); Protein,Urine Negative (Negative); Specific Gravity,Urine 1.012 (1.001-1.035); Urobilinogen,Urine <2.0 mg/dL (<2.0)
[2024-08-21 17:17] LABS: Ketones,Urine 2+ (Negative)
[2024-08-21] MEDS ORDERED: HALOPERIDOL LACTATE 5 MG/ML 1 ML VIAL IVP PRN (17:25)
--- NOTE | 2024-08-21 17:28 | P.PN ---
Subjective Progress Note Date: 08/21/24 History of present illness: Patient is a pleasant 64-year-old female with no significant past medical hist ory who presented to the emergency department after she was found on the floor by her . She does not follow with a director medical surgical and has not had any prior cardiac workup. She reports that she was cooking 2 days ago when she suddenly just collapsed to the ground injuring her leg and was unable to get up for the next 24 hours until her found her. She denies having any loss of consciousness however is uncertain how she actually fell. She does report a significant family history of father, sister, brother all having CAD. She does smoke, denies any alcohol use. Labs reviewed: Troponin 0.215, 0.300, CK 1096, 1375. Patient appears pale with a weak raspy voice. She denies any chest pain or pressure. She does report hip pain with movement. She was found to have a right femoral neck fracture and orthopedics is planning for surgery. August 20, 2024 Patient denies having any active chest pain chest pressure. She is on BiPAP. Appears uncomfortable because of pain in the right hip. August 21, 2021 Patient is seen and examined at bedside this a.m. Patient is still appearing in distress from her pain. She required intermittent BiPAP yesterday. PHYSICAL EXAMINATION: HEENT: Head is atraumatic, normocephalic. Pupils are equal, round. Sclerae anicteric. Conjunctivae are clear. Mucous membranes of the mouth are moist. Neck is supple. There is no jugular venous distention. No carotid bruit is heard. CHEST EXAMINATION: Lungs are clear to auscultation. No chest wall tenderness is noted on palpation or with deep breathing. HEART EXAMINATION: Heart regular rate and rhythm. S1, S2 heard. No murmurs, gallops or rub. ABDOMEN: Soft, nontender. Bowel sounds are heard. EXTREMITIES: 2+ peripheral pulses with no evidence of peripheral edema and no calf tenderness noted. NEUROLOGIC EXAMINATION: Patient is awake, alert and oriented x3. IMPRESSION AND PLAN: Elevated troponin due to Rhabdomyolysis Right femoral neck fracture Severe COPD emphysema Tobacco abuse Family history of CAD Pre-operative cardiac risk assessment Echocardiogram showed preserved LVEF with no significant valve dysfunction PLAN: Patient does not have any cardiovascular contraindications to proceed with the hip surgery. However patient does have advanced COPD and emphysema which would put her at moderate to high risk. Clinically, patient is at moderate to high risk for moderate risk procedure. I would advise proceeding with caution. At this time cardiology team will sign off. Please reconsult us in case of any question. Thank you for the consultation. Recommend outpatient follow-up with cardiology with outpatient noninvasive ischemic evaluation with a stress test. Objective - Vital Signs Vital signs: Vital Signs Temp 98.2 F 08/21/24 08:50 Pulse 92 08/21/24 17:18 Resp 19 08/21/24 15:47 BP 127/78 08/21/24 15:47 Pulse Ox 87 L 08/21/24 15:47 FiO2 100 08/21/24 09:25 Intake & Output 08/20/24 08/21/24 08/21/24 18:59 06:59 18:59 Intake Total 1939.727 Output Total 400 725 Balance 1539.727 -725 Weight 53.524 kg 41.5 kg Intake: Intake, IV Titration 1459.727 Amount Heparin Sod,Pork in 0.45% 29.727 NaCl 25,000 unit In 0.45 % NaCl 1 250ml.bag @ 12 UNITS/KG/HR 3.66 mls/hr IV .Q24H [facility] Rx#: [id number] Sodium Chloride 0.9% 1, 1430 000 ml @ 130 mls/hr IV . Q7H42M [facility] Rx#:[id number] Oral 480 Output: Urine 400 725 Uretheral (Wray) 475 Other: Voiding Method External Catheter Incontinent Indwelling Catheter External Catheter - Labs CBC & Chem 7: 08/21/24 06:41 08/21/24 06:41 Labs: Abnormal Lab Results - Last 24 Hours (Table) 08/20/24 08/21/24 08/21/24 Range/Units 21:38 06:41 06:41 Plt Count 144 L (150-450) k/uL Lymphocytes # 0.5 L (1.0-4.8) k/uL APTT 33.1 H (22.0-30.0) sec Sodium 147 H (137-145) mmol/L Chloride 119 H (98-107) mmol/L Carbon Dioxide 20 L (22-30) mmol/L Creatinine 0.48 L (0.52-1.04) mg/dL Glucose 132 H (74-99) mg/dL Urine Glucose (UA) (Negative) Urine Ketones (Negative) 08/21/24 Range/Units 13:56 Plt Count (150-450) k/uL Lymphocytes # (1.0-4.8) k/uL APTT (22.0-30.0) sec Sodium (137-145) mmol/L Chloride (98-107) mmol/L Carbon Dioxide (22-30) mmol/L Creatinine (0.52-1.04) mg/dL Glucose (74-99) mg/dL Urine Glucose (UA) 4+ H (Negative) Urine Ketones 2+ H (Negative)
[2024-08-21] MEDS: HALOPERIDOL LACTATE 5 MG/ML 1 ML VIAL IVP PRN (17:49)
[2024-08-21] MEDS: MORPHINE SULFATE 4 MG/ML SYRINGE IV PRN (23:12)
[2024-08-22] MEDS: LORazepam 2 MG/ML INJ IV STA (00:37)
--- NOTE | 2024-08-22 11:12 | P.PN ---
Subjective Progress Note Date: 08/22/24 This is a 64-year-old female who is admitted for multiple medical problems. Orthopedics is consulted for right hip fracture. Patient is being treated for respiratory failure. Patient is seen and evaluated at bedside today. Family is present in the room. Patient has not been cleared for surgery at this time per internal medicine and pulmonology. Objective - Vital Signs Vital signs: Vital Signs Temp 98.2 F 08/21/24 10:55 Pulse 93 08/22/24 09:10 Resp 18 08/22/24 04:00 BP 136/77 08/22/24 09:10 Pulse Ox 92 L 08/22/24 09:10 FiO2 80 08/22/24 08:21 Intake & Output 08/21/24 08/22/24 08/22/24 18:59 06:59 18:59 Intake Total 670 0 Output Total 700 400 Balance -30 -400 Weight 36.5 kg Intake: Intake, IV Titration 550 Amount Dextrose 5%-0.45% NaCl 1, 550 000 ml @ 50 mls/hr IV . Q20H [facility] Rx#:[id number] Oral 120 0 Output: Urine 700 400 Other: Voiding Method Indwelling Catheter Indwelling Catheter - Exam On exam patient is resting comfortably in bed in no acute distress. Patient does open her eyes during exam. Right lower extremity: Shortened and externally rotated. Skin is intact. There is mild swelling present. The right lower extremity is warm and well-perfused. Sensation is intact. Patient has good range of motion of the right foot and ankle. Calf is soft and nontender to palpation. Neurovascular status and circulatory status are intact. - Labs CBC & Chem 7: 08/21/24 06:41 08/21/24 06:41 Labs: Abnormal Lab Results - Last 24 Hours (Table) 08/21/24 Range/Units 13:56 Urine Glucose (UA) 4+ H (Negative) Urine Ketones 2+ H (Negative) Assessment and Plan (1) Fracture of femoral neck, right, closed Current Visit: Yes Status: Acute Code(s): S72.001A - FRACTURE OF UNSP PART OF NECK OF RIGHT FEMUR, INIT SNOMED Code(s): 831405772 (2) NSTEMI (non-ST elevated myocardial infarction) Current Visit: Yes Status: Acute Code(s): I21.4 - NON-ST ELEVATION (NSTEMI) MYOCARDIAL INFARCTION SNOMED Code(s): 80055573 (3) Rhabdomyolysis Current Visit: Yes Status: Acute Code(s): M62.82 - RHABDOMYOLYSIS SNOMED Code(s): 197822190 Plan: 1. Patient is not cleared for surgery at this point per internal medicine and pulmonology due to multiple high risk comorbidities. 2. Continue pain control. 3. We will continue with conservative treatment at this time and follow as needed.
[2024-08-22 12:03] LABS: Basophils % (A) 0 %; Eosinophils % (A) 0 %; HCT 34.5 % (34.0-46.0); HGB 10.9 gm/dL (11.4-16.0); Hypochromasia Slight; Lymphocytes # (A) 0.2 k/uL (1.0-4.8); Lymphocytes % (A) 4 %; MCHC 31.6 g/dL (31.0-37.0); MCV 94.9 fL (80.0-100.0); Monocytes # (A) 0.5 k/uL (0-1.0); Monocytes % (A) 10 %; Neutrophils # (A) 3.8 k/uL (1.3-7.7); Neutrophils % (A) 83 %; Platelet Count 120 k/uL (150-450); RBC 3.63 m/uL (3.80-5.40); RDW 14.6 % (11.5-15.5); WBC 4.6 k/uL (3.8-10.6)
--- NOTE | 2024-08-22 12:03 | P.PN ---
Subjective Progress Note Date: 08/22/24 Hospital Course: Patient is a 64-year-old female with no known PMH who was brought into the [facility] room after she was found on the floor by her . On initial presentation, patient was saturating at 92% on 2 L. Head/cervical spine CT in the emergency room was unremarkable with neck CT also unremarkable. Pelvis x- ray did reveal a right sided femoral neck fracture with chest x-ray also unremarkable. EKG revealed sinus rhythm at 87 bpm with left axis deviation with poor baseline. Laboratory evaluation was remarkable for lactic acid 4.3, troponin 0.3, creatinine kinase 1096, serum alcohol less than 10, total bilirubin 1.6, AST 47, hemoglobin 15.9. Patient was appropriately managed with IV fluids initially. Orthopedic surgery was consulted as well as cardiology. Echocardiogram showed LVEF 55 to 60%, mild mitral and tricuspid regurgitation. On 08/19/2024, 18 was called due to hypoxia. Patient was eventually put on BiPAP. Was seen by pulmonology. Currently patient with high risk for decompensation if she were to proceed with surgery. Family considering possible comfort care. Hospice consulted. Subjective: Patient seen and examined at bedside. No acute events overnight. Sitter at bedside. Patient is delirious not conversing. Pertinent positives and negatives as discussed above, a complete review of systems was performed and all other systems are negative. Vitals Signs Reviewed. General: Appears to be in discomfort, appears at stated age, cachectic Derm: Warm, dry Head: Atraumatic, normocephalic, symmetric Eyes: EOMI, no lid lag, anicteric sclera Mouth: No lip lesion, mucus membranes moist Cardiovascular: S1S2 reg, no murmur Lungs: Bibasilar rales, no accessory muscle use Abdominal: Soft, nontender to palpation, no guarding, no appreciable orga nomegaly Ext: No gross muscle atrophy, no edema, no contractures Neuro: CN II-XI grossly intact, no focal neuro deficits, not moving right lower extremity due to pain Psych: Awake, not oriented Data Reviewed Today: Pertinent Labs: CBC and BMP pending, will be reviewed when available Imaging: New imaging Assessment and Plan: Patient is severely ill, prognosis poor. Hospice consulted. Active: Acute hypoxemic and hypercapnic respiratory failure Acute COPD exacerbation -Discussed management with pulmonology, had goals of care discussion with family, considering comfort care measures, DNR/DNI status -Continue Pulmicort twice daily 1 mg, Perforomist 20 mcg twice daily, DuoNebs 4 times daily as needed and scheduled, Solu-Medrol 60 IV every 6 hours -Continue to wean oxygen Acute encephalopathy, likely metabolic -Possibly pain related -Started on Tylenol IV every 6 hours 550 mg -Continue morphine IV 4 mg every 4 hours as needed, monitor for sedation -Haldol 1 mg IV every 4 hours as needed for acute agitation -Continue sitter at bedside -CBC BMP and magnesium ordered Hypernatremia -Patient currently on D5 half-normal saline 50 cc an hour -Repeat BMP pending Acute traumatic rhabdomyolysis Type II NSTEMI Dehydration Lactic acidosis, resolved -Continue IV fluids as above -Cardiology signed off -Continue aspirin 81 mg daily Right femoral neck fracture -Due to patient currently being BiPAP dependent, patient is at moderate to severe increased risk of perioperative complication -Pulmonology recommending against surgical procedure Severe cachexia Severe protein calorie malnutrition -Patient currently n.p.o. due to her poor mental status DVT ppx: Lovenox Code status: DNR/DNI Anticipated discharge place: Pending clinical course Anticipated discharge time: Pending clinical course Objective - Vital Signs Vital signs: Vital Signs Temp 98.3 F 08/22/24 10:45 Pulse 80 08/22/24 11:55 Resp 18 08/22/24 04:00 BP 136/77 08/22/24 09:10 Pulse Ox 95 08/22/24 10:45 FiO2 80 08/22/24 08:21 Intake & Output 08/21/24 08/22/24 08/22/24 18:59 06:59 18:59 Intake Total 670 0 Output Total 700 400 Balance -30 -400 Weight 36.5 kg Intake: Intake, IV Titration 550 Amount Dextrose 5%-0.45% NaCl 1, 550 000 ml @ 50 mls/hr IV . Q20H [facility] Rx#:[id number] Oral 120 0 Output: Urine 700 400 Other: Voiding Method Indwelling Catheter Indwelling Catheter Indwelling Catheter - Labs CBC & Chem 7: 08/21/24 06:41 08/21/24 06:41 Labs: Abnormal Lab Results - Last 24 Hours (Table) 08/21/24 Range/Units 13:56 Urine Glucose (UA) 4+ H (Negative) Urine Ketones 2+ H (Negative)
[2024-08-22 12:15] LABS: African American GFR (CKD) >90 (>60 ml/min/1.73 sqM); Anion Gap 5 mmol/L; Blood Urea Nitrogen 8 mg/dL (7-17); Calcium 8.8 mg/dL (8.4-10.2); Carbon Dioxide 26 mmol/L (22-30); Chloride 116 mmol/L (98-107); Glucose 169 mg/dL (74-99); Magnesium 1.9 mg/dL (1.6-2.3); Non-African American GFR(CKD) >90 (>60 ml/min/1.73 sqM); Sodium 147 mmol/L (137-145)
[2024-08-22 12:21] LABS: Potassium 2.5 mmol/L (3.5-5.1)
[2024-08-22] MEDS: ACETAMINOPHEN IVPB SCH (12:53)
--- NOTE | 2024-08-22 14:07 | P.PN ---
Subjective Progress Note Date: 08/22/24 Principal diagnosis: Hip fracture. Pulmonology was consulted, as the patient was found to be hypoxic and in some respiratory distress during a rapid response on the cardiac stepdown unit last night. Patient is a 64-year-old white female with past medical history significant for high cholesterol. Never reportedly officially diagnosed with COPD; however, was prescribed some inhalers on outpatient basis which she never picked up. Does carry a significant smoking history, currently down to 10 cigarettes/day. Patient is a poor historian. HPI supplemented by who is at bedside. Apparently, patient's was up [employer] over the weekend. He left evening. He attempted to call his and again Tuesday. No answer on either attempt. He returned Tuesday, and found his on the floor. The electric stove was on, and pot was dry. He believes she may have been on the floor for more than a day. EMS brought the patient to the emergency department on 08/18/24. Extensive workup was performed. CT of the head and C-spine did not show any acute intracranial abnormality. No mass effect or midline shift. No acute fracture or subluxation of the C-spine. For minimal narrowing of C5-C6. X-ray of bilateral hips and pelvis suggesting a right femoral neck fracture. Patient was admitted to the cardiac stepdown unit. Patient was having increased oxygen demands yesterday. Chest CTA did not show any evidence of pulmonary embolism. Marked severe emphysematous changes. Incidental cholelithiasis. Late last night, a rapid response was called for increased oxygen demands. Reportedly had audible wheezing. ABG was performed, I believe on a 15 L nonrebreather. PaO2 66, pCO2 46, pH of 7.24. Patient currently on BiPAP with settings 14/8 and FiO2 of 100%. Patient is tachypneic. Breathing in the low 30s. Tidal volumes around 600 cc. Appears fatigued. No accessory muscle use. She is alert and able to answer questioning, but does not offer much information unless directly asked. Does not recall exact events leading to being found on the floor. Denies infectious symptoms. Denies chest pain. Follow-up chest x-ray again showing no acute cardiopulmonary process. Patient is currently on a IV heparin infusion for elevated troponins. Serial troponins were elevated at 0.3 and 0.22 respectively. Cardiology is following. Most recent CBC: WBC count 6.6, hemoglobin 13.9, hematocrit 44.4, platelets 150. Most recent CMP: Sodium 142, potassium 3.2, chloride 115, serum bicarb 17, BUN 7, creatinine 0.5, glucose 113. LFTs unremarkable. Total bilirubin 1.3. CK is elevated and trending up, most recent result 1375. Normal saline continues at 130 mL/h. Negative for COVID. Respiratory status is currently marginal, and she will require close monitoring. Progress note dated August 21, 2024. 64-year-old female who fell, and fractured her right hip. We are asked to see her, and improve her respiratory status, for anticipation of surgery on her hip. Unfortunately, the patient finds herself on 15 L high flow nasal cannula, or BiPAP, with settings of 14/8, and 80%. In addition, she is getting D5 with half-normal saline at 150 cc an hour. I did speak to the orthopedic surgeon about her, and I think it is a good idea to wait, until her respiratory status improves, to do her surgery. Labs today include a white count of 4.2, hemoglobin 11.9, hematocrit 37.3, and a platelet count of 144,000. Sodium 147, potassium 3.7, chlorides of 119, CO2 20, BUN 14, creatinine 0.48. Glucose is 132. Calcium is 9. Chest x-ray shows some subsegmental changes at the lung bases, which could represent atelectasis, or bibasilar pneumonia. Progress note dated August 22, 2024. 64-year-old female seen today in room 372. She continues to do poorly. She is currently on 15 L high flow, with saturations in the high 80s. She is getting saline at 50 cc an hour. She also spending some time on BiPAP, with settings of 14/8, and 80%. I had a long conversation with the patient's today. The patient would not have wanted to be on life support, and, I believe that if she went for surgery, to repair her right hip, she would end up on the mechanical ventilator. The is in agreement, to make the patient a DO NOT RESUSCITATE. I believe that is the right decision, because she is doing poorly, each day, and becoming much less responsive. Laboratory data includes a white count of 4.6, hemoglobin 10.9, hematocrit 34.5, and a platelet count of 120,000. Sodium 147, potassium 2.5, chlorides 116, CO2 26, BUN 8, creatinine 0.44. Glucose is 169. Objective - Vital Signs Vital signs: Vital Signs Temp 98.3 F 08/22/24 10:45 Pulse 80 08/22/24 11:55 Resp 18 08/22/24 04:00 BP 136/77 08/22/24 09:10 Pulse Ox 95 08/22/24 10:45 FiO2 80 08/22/24 08:21 Intake & Output 08/21/24 08/22/24 08/22/24 18:59 06:59 18:59 Intake Total 670 0 Output Total 700 400 Balance -30 -400 Weight 36.5 kg Intake: Intake, IV Titration 550 Amount Dextrose 5%-0.45% NaCl 1, 550 000 ml @ 50 mls/hr IV . Q20H [facility] Rx#:[id number] Oral 120 0 Output: Urine 700 400 Other: Voiding Method Indwelling Catheter Indwelling Catheter Indwelling Catheter - Exam No acute distress, the patient is poorly responsive. 15 L high flow nasal cannula noted. HEENT examination is grossly unremarkable. Mucous membranes are moist. No oral lesions. Neck supple. Full range of motion. No adenopathy thyromegaly or neck vein dist ention. Cardiovascular examination reveals regular rhythm rate. S1-S2 normal. No S3 or S4. No discernible murmur noted. Heart sounds are distant. Lungs reveal diminished bilateral breath sounds. Mild scattered wheezes and rhonchi. No crackles. Breath sounds are equal bilaterally. Abdomen soft bowel sounds are heard. No masses or tenderness. Extremities are intact. No cyanosis clubbing or edema. Skin is without rash or lesion. Neurologic examination is brief but nonfocal. - Labs CBC & Chem 7: 08/22/24 11:52 08/22/24 11:52 Labs: Abnormal Lab Results - Last 24 Hours (Table) 08/21/24 08/22/24 08/22/24 Range/Units 13:56 11:52 11:52 RBC 3.63 L (3.80-5.40) m/uL Hgb 10.9 L (11.4-16.0) gm/dL Plt Count 120 L (150-450) k/uL Lymphocytes # 0.2 L (1.0-4.8) k/uL Sodium 147 H (137-145) mmol/L Potassium 2.5 L* (3.5-5.1) mmol/L Chloride 116 H (98-107) mmol/L Creatinine 0.44 L (0.52-1.04) mg/dL Glucose 169 H (74-99) mg/dL Urine Glucose (UA) 4+ H (Negative) Urine Ketones 2+ H (Negative) Assessment and Plan Assessment: Acute hypoxemic and hypercapnic respiratory failure, secondary to acute COPD exacerbation. S/P fall, with traumatic right femoral neck fracture. Rhabdomyolysis. Non-anion gap metabolic acidosis. Elevated troponins, rule out non-ST elevation NE. History of hyperlipidemia. Chronic ongoing tobacco dependence of 30 years. Plan: Plan dated August 21, 2024. In my opinion, the patient is too sick for surgery at this time. The patient will continue on current medications, to improve her overall lung function. The patient would likely not survive surgery at this point. I expressed that to the orthopedic surgeon. He will decide to wait on this patient at this time. Additional recommendations and suggestions are forthcoming. We will continue to follow make recommendations. She is currently on appropriate bronchodilators, corticosteroids, etc. Plan dated August 22, 2024. The patient is seen today in room 372. She is on high flow nasal O2 at 15 L. Saturations were in the high 80s. The patient is becoming more unresponsive. We had a long conversation with the patient's , who made the patient a DO NOT RESUSCITATE patient. The patient would never want to be on life support, or the mechanical ventilator. At this point, I do not believe that she can tolerate the surgery to repair the right hip. Labs, x-rays, and medications are reviewed. We will continue to follow the patient. Time with Patient: Less than 30
[2024-08-22] MEDS: POTASSIUM CHLORIDE 10 MEQ in WATER FOR INJECTION 1 100ML.BAG IVPB SCH (15:00)
[2024-08-22 22:24] VITALS: TEMP 98.2
[2024-08-23 01:00] VITALS: RESP 16
[2024-08-23 03:46] VITALS: BP 89/57
[2024-08-23 06:38] LABS: Basophils % (A) 0 %; Eosinophils % (A) 0 %; HCT 34.1 % (34.0-46.0); HGB 10.7 gm/dL (11.4-16.0); Hypochromasia Marked; Lymphocytes # (A) 0.2 k/uL (1.0-4.8); Lymphocytes % (A) 5 %; MCH 30.7 pg (25.0-35.0); MCHC 31.5 g/dL (31.0-37.0); MCV 97.5 fL (80.0-100.0); Monocytes # (A) 0.3 k/uL (0-1.0); Monocytes % (A) 7 %; Neutrophils # (A) 4.1 k/uL (1.3-7.7); Neutrophils % (A) 87 %; Platelet Count 111 k/uL (150-450); RDW 14.9 % (11.5-15.5); WBC 4.7 k/uL (3.8-10.6)
[2024-08-23 07:36] LABS: African American GFR (CKD) >90 (>60 ml/min/1.73 sqM); Anion Gap 3 mmol/L; Blood Urea Nitrogen 12 mg/dL (7-17); Calcium 8.7 mg/dL (8.4-10.2); Carbon Dioxide 27 mmol/L (22-30); Chloride 114 mmol/L (98-107); Glucose 185 mg/dL (74-99); Non-African American GFR(CKD) >90 (>60 ml/min/1.73 sqM); Potassium 3.5 mmol/L (3.5-5.1); Sodium 144 mmol/L (137-145)
[2024-08-23 08:20] VITALS: PULSE 74
[2024-08-23] MEDS: ENOXAPARIN 30 MG/0.3 ML SYRINGE SQ SCH (08:41)
--- NOTE | 2024-08-23 15:20 | P.DS ---
Providers Date of admission: 08/18/24 21:51 Expected date of discharge: 08/23/24 Attending physician: Kwadwo Samano MD Consults: 08/18/24 21:58 Consult Physician Routine Consulting Provider: Becky Rios Consult Reason/Comments: [employer] Do you want consulting provider notified?: Yes 08/19/24 10:00 Consult Physician Routine Consulting Provider: Alfonoz Thompson Consult Reason/Comments: femur fracture Do you want consulting provider notified?: Already Contacted 08/19/24 20:38 Consult Physician Routine Consulting Provider: Loraine Chen Consult Reason/Comments: Emphysema Do you want consulting provider notified?: Already Contacted Primary care physician: Physician Nonstaff Hospital Course: Discharge Diagnosis: Acute hypoxemic and hypercapnic respiratory failure Acute COPD exacerbation Acute encephalopathy, likely metabolic Hypernatremia Acute traumatic rhabdomyolysis Type II NSTEMI Dehydration Lactic acidosis, resolved Right femoral neck fracture Severe cachexia Severe protein calorie malnutrition Hospital Course: Patient is a pleasant 64-year-old female with no reported past medical history. She presented to the emergency department on 08/18/2024 after she was found on the floor by her . On initial presentation, patient was saturating at 92% on 2 L. Head/cervical spine CT in the emergency room was unremarkable with neck CT also unremarkable. Pelvis x-ray did reveal a right sided femoral neck fracture with chest x-ray also unremarkable. EKG revealed sinus rhythm at 87 bpm with left axis deviation with poor baseline. Laboratory evaluation was remarkable for lactic acid 4.3, troponin 0.3, creatinine kinase 1096, serum alcohol less than 10, total bilirubin 1.6, AST 47, hemoglobin 15.9. Patient was appropriately managed with IV fluids initially. Orthopedic surgery was consulted as well as cardiology. Echocardiogram showed LVEF 55 to 60%, mild mitral and tricuspid regurgitation. On 08/19/2024, 18 was called due to hypoxia. Patient was eventually put on BiPAP. Was seen by pulmonology. Currently patient with high risk for decompensation if she were to proceed with surgery. Family considering possible comfort care. Hospice consulted and met with patient and family. Patient's family made the decision to stop treatment and transition to comfort care only with Hospice. Mehreen michael stated pt will require inpatient hospice and discharged to inpatient hospice at this time. Physical exam: General: Nontoxic, chronically ill-appearing, frail, emaciated Derm: Skin warm and dry, normal coloration for ethnicity. Head: Atraumatic, normocephalic and symmetric. Eyes:, no lid lag, and anicteric sclera Mouth: no lip lesions, mucus membranes moist Cardiovascular: regular rate and rhythm with normal S1S2, systolic murmur, positive posterior tibial pulses bilaterally, and cap refill < 2 seconds. Lungs: Respirations even, shallow, and regular on high flow nasal cannula 15 L 80% FiO2. Lungs diminished otherwise no adventitious sounds noted. Abdominal: soft, nontender to palpation, no guarding, no appreciable organomegaly Ext: No gross muscle atrophy, no edema, no contractures. RLE Neuro/psych: Sleeping, nonresponsive Patient was seen independently by Nurse Practitioner. This document was prepared using [employer] dictation software. Please allow for errors in fire fighters dispatcher while rare they do occur. Patient was seen independently by Fredi Matias NP. I agree with the assessment and plan as above. Patient Condition at Discharge: Stable Plan - Discharge Summary Discharge Rx Participant: No New Discharge Prescriptions: No Action Atorvastatin [Lipitor] 40 mg PO DAILY Discharge Medication List Atorvastatin [Lipitor] 40 mg PO DAILY 08/19/24 [History] Follow up Appointment(s)/Referral(s): Russell Zee DO [REFERRING] - 1-2 Days Activity/Diet/Wound Care/Special Instructions: Patient discharged into inpatient hospice Discharge Disposition: HOME WITH HOSPICE
== END 2024-08-23 09:45 | disposition hospice, inpatient (51) | DRG 963 ==
LOC: EC 20:24 → 3SCARD 21:51
PROVIDERS: ADMIT Internal Medicine; ATTEND Internal Medicine
PROC: 5A09357 Assistance with Respiratory Ventilation, Less than 24 Consecutive Hours, Continuous Positive Airway Pressure (ICD-10-PCS; principal; 2024-08-20)
DX: S72.001A Fracture of unspecified part of neck of right femur, initial encounter for closed fracture (principal); E43 Unspecified severe protein-calorie malnutrition; T79.6XXA Traumatic ischemia of muscle, initial encounter; J96.01 Acute respiratory failure with hypoxia; I21.A1 Myocardial infarction type 2; J96.02 Acute respiratory failure with hypercapnia; G93.41 Metabolic encephalopathy; Z68.1 Body mass index [BMI] 19.9 or less, adult; R64 Cachexia; E87.20 Acidosis, unspecified; E87.0 Hyperosmolality and hypernatremia; J43.9 Emphysema, unspecified; E78.00 Pure hypercholesterolemia, unspecified; F17.210 Nicotine dependence, cigarettes, uncomplicated; E55.9 Vitamin D deficiency, unspecified; E86.0 Dehydration; W19.XXXA Unspecified fall, initial encounter; Z66 Do not resuscitate; Z51.5 Encounter for palliative care; Z79.51 Long term (current) use of inhaled steroids; Z79.82 Long term (current) use of aspirin; Z79.899 Other long term (current) drug therapy
CPT/HCPCS: 36415; 36600; 70450; 70490; 71045; 71275; 72125; 73521; 80048; 80053; 80320; 81003; 82306; 82550; 82607; 82610; 82746; 82803; 82805; 83540; 83550; 83605; 83735; 84100; 84484; 85025; 85379; 85610; 85730; 86850; 86900; 86901; 87635; 93005; 93306; 94640; 94660; 94760; 96360; 96361; 99291

== ENCOUNTER 2024-08-23 09:18 | Inpatient (IN) | payer MEDICAID ==
[2024-08-23] MEDS ORDERED: DRY MOUTH SPRAY 44.3 SPRAY/44.3 ML SPRAY MUCOUS MEM PRN (09:40)
[2024-08-23] MEDS ORDERED: LORazepam 2 MG/ML INJ IV PRN (09:40)
[2024-08-23] MEDS ORDERED: ONDANSETRON 4 MG/2 ML VIAL IVP PRN (09:40)
[2024-08-23] MEDS ORDERED: GLYCOPYRROLATE 0.2 MG/ML 2 ML VIAL IVP PRN (09:40)
[2024-08-23] MEDS ORDERED: ATROPINE OPHTH SOLN 1% 5ML BTL SUBLINGUAL PRN (09:40)
[2024-08-23] MEDS ORDERED: ACETAMINOPHEN SUPPOSITORY 650 MG SUPP RECTAL PRN (09:40)
[2024-08-23] MEDS: MORPHINE SULFATE 4 MG/ML SYRINGE IV PRN (10:10)
[2024-08-23] MEDS: MORPHINE SULFATE (100 MG/2 ML) 100 MG in SODIUM CHLORIDE 0.9% 100 ML IV SCH (10:16)
[2024-08-23] MEDS: SCOPOLAMINE 1 MG/72 HR PATCH TRANSDERM SCH (10:24)
--- NOTE | 2024-08-23 15:26 | P.HPIM ---
History of Present Illness H&P Date: 08/23/24 History of Presenting Illness: Patient is a pleasant 64-year-old female with no reported past medical history. She presented to the emergency department on 08/18/2024 after she was found on the floor by her . On initial presentation, patient was saturating at 92% on 2 L. Head/cervical spine CT in the emergency room was unremarkable with neck CT also unremarkable. Pelvis x-ray did reveal a right sided femoral neck fracture with chest x-ray also unremarkable. EKG revealed sinus rhythm at 87 bpm with left axis deviation with poor baseline. Laboratory evaluation was remarkable for lactic acid 4.3, troponin 0.3, creatinine kinase 1096, serum alcohol less than 10, total bilirubin 1.6, AST 47, hemoglobin 15.9. Patient was appropriately managed with IV fluids initially. Orthopedic surgery was consulted as well as cardiology. Echocardiogram showed LVEF 55 to 60%, mild mitral and tricuspid regurgitation. On 08/19/2024, 18 was called due to hypoxia. Patient was eventually put on BiPAP. Was seen by pulmonology. Currently patient with high risk for decompensation if she were to proceed with surgery. Family considering possible comfort care. Hospice consulted and met with patient and family. Patient's family made the decision to stop treatment and transition to comfort care only with Hospice. Mehreen catalanshilaluisito stated pt will require inpatient hospice and admitted to inpatient hospice at this time under our services. Review of systems: Pertinent positives and negatives as discussed in HPI, a complete review of systems was performed and all other systems are negative. Physical exam: General: Nontoxic, chronically ill-appearing, frail, emaciated Derm: Skin warm and dry, normal coloration for ethnicity. Head: Atraumatic, normocephalic and symmetric. Eyes:, no lid lag, and anicteric sclera Mouth: no lip lesions, mucus membranes moist Cardiovascular: regular rate and rhythm with normal S1S2, systolic murmur, positive posterior tibial pulses bilaterally, and cap refill < 2 seconds. Lungs: Respirations even, shallow, and regular on high flow nasal cannula 15 L 80% FiO2. Lungs diminished otherwise no adventitious sounds noted. Abdominal: soft, nontender to palpation, no guarding, no appreciable organomegaly Ext: No gross muscle atrophy, no edema, no contractures. RLE Neuro/psych: Sleeping, nonresponsive Assessment and Plan of Care: Acute hypoxemic and hypercapnic respiratory failure Acute COPD exacerbation Acute encephalopathy, likely metabolic Hypernatremia Acute traumatic rhabdomyolysis Type II NSTEMI Dehydration Lactic acidosis, resolved Right femoral neck fracture Severe cachexia Severe protein calorie malnutrition -Comfort measures only. -Symptomatic care and pain management. -Tylenol suppository 650 mg rectally every 4 hours as needed for fever and/or mild pain. -Artificial teardrops to bilateral eyes every 2 hours as needed for dry eyes. -Scopolamine patch. -Order placed for sublingual atropine drops and Robinul for excess secretions. -Zofran as needed for nausea and/or vomiting. -Initiate morphine infusion 1 mg/h and titrate as needed to maintain patient's comfort. -Morphine 4 mg IVP every 15 minutes as needed for severe uncontrolled breakthrough pain. -Ativan 1 mg IVP every 6 hours as needed for agitation or acute anxiety. CODE STATUS: DNR/DNI hospice care only Patient was seen independently by Nurse Practitioner. This document was prepared using [employer] dictation software. Please allow for errors in child life specialist while rare they do occur. Patient was seen independently by Fredi Matias NP. I agree with the assessment and plan as above. Past Medical History Past Medical History: No Reported History History of Any Multi-Drug Resistant Organisms: None Reported Past Surgical History: Section Past Anesthesia/Blood Transfusion Reactions: No Reported Reaction Past Psychological History: No Psychological Hx Reported Smoking Status: Current every day smoker Past Alcohol Use History: None Reported Past Drug Use History: None Reported Medications and Allergies Home Medications Medication Instructions Recorded Confirmed Type Atorvastatin [Lipitor] 40 mg PO DAILY 08/19/24 08/23/24 History Allergies Allergy/AdvReac Type Severity Reaction Status Date / Time No Known Allergies Allergy Verified 08/19/24 10:29 Physical Exam Vitals: Intake and Output 08/22/24 08/23/24 08/23/24 22:59 06:59 14:59 Intake Total 1.649 Balance 1.649 Intake: Intake, IV Titration 1.649 Amount Morphine Sulfate (100 mg/ 1.649 2 ml) 100 mg In Sodium Chloride 0.9% 100 ml @ 1 MG/HR 1.02 mls/hr IV . Q24H [facility] Rx#:[id number] Other: Voiding Method Indwelling Catheter Weight 48 kg
[2024-08-24 08:20] VITALS: RESP 10
--- NOTE | 2024-08-24 13:20 | P.PN ---
Subjective Progress Note Date: 08/24/24 Hospital Course: Patient is a pleasant 64-year-old female with no reported past medical history. She presented to the emergency department on 08/18/2024 after she was found on the floor by her . On initial presentation, patient was saturating at 92% on 2 L. Head/cervical spine CT in the emergency room was unremarkable with neck CT also unremarkable. Pelvis x-ray did reveal a right sided femoral neck fracture with chest x-ray also unremarkable. EKG revealed sinus rhythm at 87 bpm with left axis deviation with poor baseline. Laboratory evaluation was remarkable for lactic acid 4.3, troponin 0.3, creatinine kinase 1096, serum alcohol less than 10, total bilirubin 1.6, AST 47, hemoglobin 15.9. Patient was A team called due to hypoxia. Patient was eventually put on BiPAP. Was seen by pulmonology. Currently patient with high risk for decompensation if she were to proceed with surgery. Family considering possible comfort care. Hospice consulted and met with patient and family. Patient's family made the decision to stop treatment and transition to comfort care only with Hospice. Mehreen jamarluisito stated pt will require inpatient hospice and admitted to inpatient hospice at this time under our services. Subjective: Patient seen and examined at bedside. No acute events overnight. Pertinent positives and negatives as discussed above, a complete review of systems was performed and all other systems are negative. Vitals Signs Reviewed. General: Chronically ill-appearing, frail, emaciated Derm: Warm, dry Head: Atraumatic, normocephalic, symmetric Eyes: No lid lag, anicteric sclera Mouth: No lip lesion, mucus membranes moist Cardiovascular: S1S2 reg, no murmur Lungs: Bradypnea, supplemental oxygen Abdominal: Soft, nondistended Neuro: Obtunded Psych: Unable to assess Data Reviewed Today: Pertinent Labs: no new labs Imaging: no new imaging Assessment and Plan: Acute hypoxemic and hypercapnic respiratory failure Acute COPD exacerbation Acute encephalopathy, likely metabolic Hypernatremia Acute traumatic rhabdomyolysis Type II NSTEMI Dehydration Lactic acidosis, resolved Right femoral neck fracture Severe cachexia Severe protein calorie malnutrition -Comfort measures only -Symptomatic care and pain management. -Tylenol suppository 650 mg rectally every 4 hours as needed for fever and/or mild pain. -Artificial teardrops to bilateral eyes every 2 hours as needed for dry eyes. -Scopolamine patch. -Order placed for sublingual atropine drops and Robinul for excess secretions. -Zofran as needed for nausea and/or vomiting. -continue morphine infusion 1 mg/h and titrate as needed to maintain patient's comfort. -Morphine 4 mg IVP every 15 minutes as needed for severe uncontrolled breakthrough pain. -Ativan 1 mg IVP every 6 hours as needed for agitation or acute anxiety. DVT ppx: not indicated Code status: DNR/DNI Patient anticipated to pass away during this hospitalization. Objective - Vital Signs Vital signs: Vital Signs Temp Pulse Resp 10 L 08/24/24 11:55 BP Pulse Ox 85 L 08/24/24 08:09 FiO2 Intake & Output 08/23/24 08/24/24 08/24/24 18:59 06:59 18:59 Intake Total 1.649 69.972 Balance 1.649 69.972 Weight 48 kg Intake: Intake, IV Titration 1.649 69.972 Amount Morphine Sulfate (100 mg/ 1.649 69.972 2 ml) 100 mg In Sodium Chloride 0.9% 100 ml @ 1 MG/HR 1.02 mls/hr IV . Q24H [facility] Rx#:[id number] Other: Voiding Method Indwelling Catheter Indwelling Catheter
--- NOTE | 2024-08-24 15:24 | P.DS ---
Providers Date of admission: 08/23/24 09:45 Expected date of discharge: 08/24/24 Attending physician: Ghanshyam Townsend Primary care physician: Physician Nonstaff Hospital Course: Discharge Diagnosis: Acute hypoxemic and hypercapnic respiratory failure Acute COPD exacerbation Acute encephalopathy, likely metabolic Hypernatremia Acute traumatic rhabdomyolysis Type II NSTEMI Dehydration Lactic acidosis, resolved Right femoral neck fracture Severe cachexia Severe protein calorie malnutrition Hospital Course: Patient is a pleasant 64-year-old female with no reported past medical history. She presented to the emergency department on 08/18/2024 after she was found on the floor by her . On initial presentation, patient was saturating at 92% on 2 L. Head/cervical spine CT in the emergency room was unremarkable with neck CT also unremarkable. Pelvis x-ray did reveal a right sided femoral neck fracture with chest x-ray also unremarkable. EKG revealed sinus rhythm at 87 bpm with left axis deviation with poor baseline. Laboratory evaluation was remarkable for lactic acid 4.3, troponin 0.3, creatinine kinase 1096, serum alcohol less than 10, total bilirubin 1.6, AST 47, hemoglobin 15.9. Patient was A team called due to hypoxia. Patient was eventually put on BiPAP. Was seen by pulmonology. Currently patient with high risk for decompensation if she were to proceed with surgery. Family considering possible comfort care. Hospice consulted and met with patient and family. Patient's family made the decision to stop treatment and transition to comfort care only with Hospice. Mehreen michael stated pt will require inpatient hospice and admitted to inpatient hospice at this time under our services. Patient started on morphine drip. Patient at 1408 on 08/24/2024. Plan - Discharge Summary New Discharge Prescriptions: No Action Atorvastatin [Lipitor] 40 mg PO DAILY Discharge Medication List Atorvastatin [Lipitor] 40 mg PO DAILY 08/19/24 [History]
== END 2024-08-24 16:00 | disposition expired | DRG 951 ==
LOC: 3SCARD 09:45
PROVIDERS: ADMIT Student in an Organized Health Care Education/Training Program; ATTEND Student in an Organized Health Care Education/Training Program
DX: Z51.5 Encounter for palliative care (principal); J96.01 Acute respiratory failure with hypoxia; E43 Unspecified severe protein-calorie malnutrition; G93.41 Metabolic encephalopathy; I21.A1 Myocardial infarction type 2; S72.001A Fracture of unspecified part of neck of right femur, initial encounter for closed fracture; J96.02 Acute respiratory failure with hypercapnia; J44.1 Chronic obstructive pulmonary disease with (acute) exacerbation; E87.0 Hyperosmolality and hypernatremia; E87.20 Acidosis, unspecified; R64 Cachexia; Z68.1 Body mass index [BMI] 19.9 or less, adult; Z66 Do not resuscitate; T79.6XXA Traumatic ischemia of muscle, initial encounter; E86.0 Dehydration; I08.1 Rheumatic disorders of both mitral and tricuspid valves; F17.200 Nicotine dependence, unspecified, uncomplicated; Z79.899 Other long term (current) drug therapy
CPT/HCPCS: 94760